=== PATIENT | female | born 1930 | race Caucasian/White ===

== ENCOUNTER 2019-09-21 15:05 | Inpatient (IN) ==
[2019-09-21] MEDS ORDERED: ONDANSETRON 4 MG/2 ML VIAL IV ONE (15:27)
[2019-09-21] MEDS ORDERED: HYDROmorphone 0.5 MG/0.5 ML SYRINGE IV PRN ×2 (15:27→17:47)
[2019-09-21] MEDS ORDERED: LACTATED RINGERS 1,000 ML IV ONE (15:27)
--- NOTE | 2019-09-21 15:39 | Emergency Department Note ---
HPI General Chief complaint: Nausea/Vomiting/Diarrhea Stated complaint: n/v/d Time Seen by Provider: 09/21/19 15:26 Source: patient Mode of arrival: ambulatory Limitations: no limitations History of Present Illness HPI Narrative: Narrative: This patient has been having abdominal pain intermittently since June. 5 days ago she had a gallbladder ultrasound and MRCP which was very consistent with cholecystitis. That was done as an outpatient. She sees Jf Arnold. Jf Arnold saw her today in the office and the patient was supposed to see a surgeon this week but just cannot go through another night with this pain and so she came to the emergency room. Pain is felt in the right upper quadrant and may be perhaps in the right lower quadrant. Does not feel it in the back. Has no current nausea. Onset (ago): week(s) Location: abdomen Radiation: non-radiation Severity: moderate Quality: stabbing and sharp Improves with: none Worsens with: none Associated symptoms: Reports denies other symptoms Treatments Prior to Arrival: none Related Data Home Medications Medication Instructions Recorded Confirmed potassium chloride 10 mEq 10 meq PO QDAY 07/24/19 09/21/19 tablet,extended release Previous Rx's Medication Instructions Recorded apixaban 2.5 mg tablet 2.5 mg PO BID #60 tab 07/31/19 baclofen 5 mg tablet 5 mg PO BID #60 tab 08/10/19 candesartan 4 mg tablet 4 mg PO QDAY #90 tab 08/10/19 metoprolol succinate 50 mg 50 mg PO BID #60 tab 08/10/19 tablet,extended release 24 hr alprazolam 0.25 mg tablet 0.25 mg PO BID PRN #60 tab 09/10/19 Allergies Allergy/AdvReac Type Severity Reaction Status Date / Time lisinopril AdvReac Mild cough Verified 09/21/19 15:08 azithromycin [From Zithromax] AdvReac Unknown Unknown Verified 09/21/19 15:08 Review of Systems ROS ROS Narrative: Narrative: All systems ED: reviewed and negative except as stated. PFSH Narrative Patient History Narrative: Narrative: Medical/Surgical/Family History All Active Problems (Updated 09/21/19 @ 17:51 by Paul Sheikh MD) Nausea (Acute) Diarrhea (Acute) Cholecystitis (Acute) Skin cancer (Chronic) Scarlet fever (Chronic) Osteoarthritis (Chronic) History of bilateral oophorectomy (Chronic) Other hypertrophic cardiomyopathy (Chronic) Nonrheumatic aortic valve regurgitation (Chronic) Blood glucose abnormal (Chronic) Renal failure (Chronic) Pneumonia (Chronic) Anemia (Chronic) Medicare annual wellness visit, subsequent (Chronic) Mitral regurgitation (Chronic) Aortic regurgitation (Chronic) Pleural effusion (Chronic) Anxiety (Chronic) Hyperlipidemia (Chronic) Hx of appendectomy (Chronic) Congestive heart failure (Chronic) Heart failure, systolic, with acute decompensation (Chronic) Hypertension (Chronic) Abnormal liver enzymes (Chronic) Medical History (Updated 09/21/19 @ 17:51 by Paul Sheikh MD) Abnormal liver enzymes (Chronic) resolved. likely related to chf and passive liver congestion. Anemia (Chronic) Anxiety (Chronic) Aortic regurgitation (Chronic) 01/04/2015-Sveta Atrial fibrillation (Acute) Blood glucose abnormal (Chronic) Congestive heart failure (Chronic) Heart failure, systolic, with acute decompensation (Chronic) Etiology? valvular, htn, ischemic? await cardiology note on david and arb. clinically asymptomatic at present. Hyperlipidemia (Chronic) Hypertension (Chronic) Mitral regurgitation (Chronic) 01/04/2015-Sveta Nonrheumatic aortic valve regurgitation (Chronic) Osteoarthritis (Chronic) Other hypertrophic cardiomyopathy (Chronic) Pleural effusion (Chronic) 01/04/2015-Sveta Pneumonia (Chronic) Renal failure (Chronic) Scarlet fever (Chronic) Skin cancer (Chronic) Surgical History History of bilateral oophorectomy (Chronic) Hx of appendectomy (Chronic) Family History Mother Hypertension Brother Hypertension Daughter COPD (chronic obstructive pulmonary disease) Other Parkinson disease Social History Smoking Status: Never smoker Alcohol Intake Frequency: does not drink Substance Use: does not use Exam Narrative Narrative: Narrative: General Limitations: no limitations Head Head: atraumatic, normocephalic and normal inspection Eye Eye: Present normal appearance and EOMI; Absent scleral icterus and conjunctival injection ENT ENT: Present normal exam and mucous membranes moist Chest Chest: Present normal inspection and symmetric chest wall rise Respiratory Respiratory: Present normal lung sounds bilaterally; Absent respiratory distress, rales/crackles and wheezes Cardiovascular Cardiovascular: Present regular rate, normal rhythm and normal heart sounds Adbominal Abdominal: Present soft and tenderness; Absent distention, guarding, rebound and rigidity Expanded Abdominal Abdominal Tenderness: Present RUQ, RLQ and mild Neurological Neurological: Present alert Psychiatric Psychiatric: Present normal affect Skin Skin: Present warm and dry; Absent diaphoretic Course Vital Signs Vital signs: Vital Signs Temperature 96.6 F L 09/21/19 15:06 Pulse Rate 113 H 09/21/19 15:06 Respiratory Rate 16 09/21/19 15:06 Blood Pressure 135/93 09/21/19 15:06 Pulse Oximetry (%) 98 09/21/19 15:06 Temperature 96.6 F L 09/21/19 15:06 Pulse Rate 125 H 09/21/19 17:31 Respiratory Rate 20 09/21/19 17:06 Blood Pressure 124/74 09/21/19 17:31 Pulse Oximetry (%) 98 09/21/19 17:31 MDM MDM Narrative Medical decision making narrative: Narrative: This patient's ultrasound and MRCP are quite consistent with acute cholecystitis without gallbladder stones or common bile duct stones. Lab work today is not too remarkable. I discussed the case with Dr. Arnold and we will go ahead and admit her to the hospital. We will asked the hospitalist to consult. Medical Records Medical records reviewed: Yes I reviewed the patient's medical records. Lab Data Lab results reviewed: Yes I reviewed the patient's lab results. Result diagrams: 09/21/19 15:49 09/21/19 15:48 Labs: Lab Results 09/21/19 09/21/19 Range/Units 15:48 15:49 WBC 8.3 (4.50-11.00) K/mcL RBC 4.25 (3.59-5.38) M/mcL Hgb 13.5 (11.2-15.7) g/dL Hct 40.3 (34.1-44.9) % MCV 94.8 (80.0-100.0) fL MCH 31.8 (26.0-34.0) pg MCHC 33.5 (31.0-36.0) g/dL RDW 14.8 H (11.5-14.5) % Plt Count 199 (140-440) K/mcL MPV 9.6 (7.4-10.4) fL Gran % 63.3 (38.0-78.0) % Lymph % (Auto) 29.4 (15.5-49.0) % [place] % (Auto) 6.6 (1.0-12.0) % Eos % (Auto) 0.2 (0.0-7.0) % Baso % (Auto) 0.5 (0.0-2.0) % Gran # 5.28 (1.80-8.00) K/mcL Lymph # (Auto) 2.45 (1.50-4.80) K/mcL [place] # (Auto) 0.55 (0.10-0.90) K/mcL Eos # (Auto) 0.02 (0.00-0.70) K/mcL Baso # (Auto) 0.04 (0.00-0.30) K/mcL Sodium 131 L (133-145) mmol/L Potassium 4.8 (3.3-5.1) mmol/L Chloride 97 (96-108) mmol/L Carbon Dioxide 18 L (22-30) mmol/L Anion Gap 16.0 (8-16) BUN 29 H (8-23) mg/dl Creatinine 1.4 H (0.6-1.1) mg/dl GFR Calculation 34 Glucose 126 H (70-105) mg/dL Calcium 9.2 (8.6-10.4) mg/dl Total Bilirubin 1.5 H (0.0-1.0) mg/dL AST 73 H (0-37) U/l ALT 65 H (0-40) U/l Alkaline Phosphatase 77 (39-117) U/L Total Protein 6.5 (5.9-8.4) gm/dL Albumin 4.1 (3.2-5.2) gm/dL Globulin 2.4 (2.2-3.7) gm/dL Albumin/Globulin Ratio 1.7 (1.0-2.3) Lipase 26 (7-60) U/L Radiology Data Radiology results reviewed: Yes I reviewed the patient's radiology results. Discharge Plan Patient/Caregiver Discharge Instructions Pt seen by WAREHOU[employer]KL[employer] OPERATOR/PA only: No Clinical Impression: Cholecystitis Patient Disposition: Xfer As Inpt ([facility]) Follow up with: Natasha Arnold ARNP [Primary Care Provider] - Prescriptions: No Action potassium chloride 10 mEq tablet extended release 10 meq PO QDAY RF: 0 Eliquis 2.5 mg tablet 2.5 mg PO BID Qty: 60 RF: 6 metoprolol succinate 50 mg tablet extended release 24 hr 50 mg PO BID Qty: 60 RF: 2 baclofen 5 mg tablet 5 mg PO BID Qty: 60 RF: 2 candesartan [Atacand] 4 mg tablet 4 mg PO QDAY Qty: 90 RF: 0 alprazolam [Xanax] 0.25 mg tablet 0.25 mg PO BID PRN (Reason: anxiety) Qty: 60 RF: 2
[2019-09-21 16:51] LABS: Basophils # (Auto) 0.04 K/mcL (0.00-0.30); Basophils % (Auto) 0.5 % (0.0-2.0); Eosinophils # (Auto) 0.02 K/mcL (0.00-0.70); Eosinophils % (Auto) 0.2 % (0.0-7.0); Granulocytes % (Auto) 63.3 % (38.0-78.0); Hematocrit 40.3 % (34.1-44.9); Hemoglobin 13.5 g/dL (11.2-15.7); Lymphocytes # (Auto) 2.45 K/mcL (1.50-4.80); Lymphocytes % (Auto) 29.4 % (15.5-49.0); Mean Cell Volume 94.8 fL (80.0-100.0); Mean Corpuscular HGB Conc 33.5 g/dL (31.0-36.0); Mean Platelet Volume 9.6 fL (7.4-10.4); Monocytes # (Auto) 0.55 K/mcL (0.10-0.90); Monocytes % (Auto) 6.6 % (1.0-12.0); Platelet Count 199 K/mcL (140-440); RBC 4.25 M/mcL (3.59-5.38); Red Cell Distribution Width 14.8 % (11.5-14.5); WBC 8.3 K/mcL (4.50-11.00)
[2019-09-21 17:10] LABS: ALT/SGPT 65 U/l (0-40); AST/SGOT 73 U/l (0-37); Albumin 4.1 gm/dL (3.2-5.2); Albumin/Globulin Ratio 1.7 (1.0-2.3); Alkaline Phosphatase 77 U/L (39-117); Bilirubin,Total 1.5 mg/dL (0.0-1.0); Blood Urea Nitrogen 29 mg/dl (8-23); Calcium 9.2 mg/dl (8.6-10.4); Carbon Dioxide 18 mmol/L (22-30); Chloride 97 mmol/L (96-108); Globulin 2.4 gm/dL (2.2-3.7); Glomerular Filtration Rate 34; Glucose 126 mg/dL (70-105)
[2019-09-21] MEDS ORDERED: PIPERACILLIN SODIUM/TAZOBACTAM 3.375 GM in DEXTROSE 5% IN WATER 50 ML IV ONE (17:47)
[2019-09-21] MEDS ORDERED: ONDANSETRON 4 MG/2 ML VIAL IV PRN (17:47)
[2019-09-21] MEDS ORDERED: LACTATED RINGERS 1,000 ML IV SCH (18:00)
[2019-09-21 18:14] LABS: Appearance,Urine CLEAR; Bacteria,Urine 0 /hpf (0); Bilirubin,Urine NEG (NEG); Color,Urine YELLOW; Culture Indicated,Urine NO; Glucose,Urine (UA) NEGATIVE (NEG); Ketones,Urine NEG (NEG); Leukocyte Esterase,Urine NEG /uL (NEG); Mucus,Urine FEW /hpf (0); Nitrate,Urine NEG (NEG); Protein,Urine 30 mg/dL (NEG); Specific Gravity,Urine 1.014 (1.000-1.035); Urine Blood NEG mg/dL (<0.03); Urine Hyaline Cast 7 /lpf (0-2); Urine RBC 1 /hpf (0-1); Urine Squamous Epithelial Cell 0 /hpf (0-4); Urine Transitional Epi Cells < 1 /hpf (0-2); Urine WBC 1 /hpf (0-4); Urobilinogen,Urine NEG (NEG)
--- NOTE | 2019-09-21 18:42 | XRay Report ---
CLINICAL INFORMATION: edema COMPARISON: 12/19/2014 FINDINGS: The heart is moderately enlarged. Mediastinum is normal. Upper lobe pulmonary vessels are mildly distended and there is minimal interstitial edema. Small bilateral pleural effusions noted. IMPRESSION: Mild CHF Interpreted and Authenticated by: Benoit Baugh 09/21/19
--- NOTE | 2019-09-21 20:09 | General Surg History&Physical ---
HPI History of Present Illness Patient information: Note initiated : 09/21/19 at 8:01 pm Service Date, if different from initiated Date: [] Patient: Liane James a 89 y/o F admitted on 09/21/19 for n/v/d. Chief Complaint: [] History of present illness: Ms. James is a 89 year old F admitted with acute acalculous cholecystitis. The patient has a two-month history of right subcostal abdominal pain with radiation to back and right shoulder. She has some exacerbation of symptoms with meals. Evaluation shows gallbladder ultrasound revealing thickened gallbladder without stones. MRCP on 09/16/19 shows a thickened gallbladder wall without stones and with normal bowel ducts. Patient is counseled for acalculous cholecystitis and laparoscopic cholecystectomy. This will be performed tomorrow. The patient has a history of hypertensive cardiomyopathy dating back to 2014. At that time she had an ejection fraction of 20%. Her last echocardiogram on 07/14/19 shows ejection fraction of 25%. She had a stress test on 07/15/19 which shows no reversible ischemia. She has had periods of congestive heart failure treated with diuretic therapy in the past. She was offered an AICD but refused. She states that she is active around her house and she does her housework. She denies having chest pain other than pain when she bends at the waist on the right side. Constitutional Constitutional: Present anorexia, fatigue, malaise and weakness EENT Eyes: Present requires corrective lenses; Absent blurry vision and change in vision Ears: Present decreased hearing; Absent tinnitus Nose, mouth and throat: Present abnormal hearing; Absent neck pain Cardiovascular Cardiovascular: Present dyspnea on exertion, leg edema, palpatations, pedal edema and rapid heart rate; Absent chest pain with activity Respiratory Respiratory: Present dyspnea on exertion and wheezing Gastrointestinal Gastrointestinal: Present abdominal pain, early satiety and nausea; Absent vomiting Genitourinary Genitourinary: Present urinary incontinence; Absent urinary frequency and urinary urgency Musculoskeletal Musculoskeletal: Present arthralgias, muscle cramps and myalgias Integumentary Integumentary: Absent pruritus and rash Neurological Neurological: Present abnormal hearing and memory loss; Absent confusion, headache(s), paresthesias, syncope and vertigo Psychiatric Psychiatric: Present confusion and memory loss; Absent depression Endocrine Endocrine: Present fatigue; Absent palpitations Hematologic/Lymphatic Hematologic/Lymphatic: Present easy bleeding (patient is on anticoagulant therapy) and easy bruising; Absent lymphadenopathy Allergic/Immunologic Allergic/Immunologic: Absent tongue swelling, throat swelling, uticaria, wheezing and lip swelling [facility] Medical History (Updated 09/21/19 @ 20:23 by Ki Arnold MD) Abnormal liver enzymes (Chronic) resolved. likely related to chf and passive liver congestion. Anemia (Chronic) Anxiety (Chronic) Aortic regurgitation (Chronic) 01/04/2015-Sveta Atrial fibrillation (Acute) Blood glucose abnormal (Chronic) Congestive heart failure (Chronic) Heart failure, systolic, with acute decompensation (Chronic) Etiology? valvular, htn, ischemic? await cardiology note on david and arb. clinically asymptomatic at present. Hyperlipidemia (Chronic) Hypertension (Chronic) Mitral regurgitation (Chronic) 01/04/2015-Sveta Nonrheumatic aortic valve regurgitation (Chronic) Osteoarthritis (Chronic) Other hypertrophic cardiomyopathy (Chronic) Pleural effusion (Chronic) 01/04/2015-Sveta Pneumonia (Chronic) Renal failure (Chronic) Scarlet fever (Chronic) Skin cancer (Chronic) Surgical History History of bilateral oophorectomy (Chronic) Hx of appendectomy (Chronic) Family History Mother Hypertension Brother Hypertension Daughter COPD (chronic obstructive pulmonary disease) Other Parkinson disease Social History lives independently: Yes marital status: occupational status: retired other: 5 children, 11 grandchildren daily servings fruits/ve-4 physical activity: walking smoking status: Never smoker alcohol intake frequency: does not drink substance use type: does not use seatbelt use: always MEDS/ALLERGIES Home Medications and Allergies Home Medications Medication Instructions Recorded Confirmed Type potassium chloride 10 mEq 10 meq PO QDAY 07/24/19 09/21/19 History tablet,extended release apixaban 2.5 mg tablet 2.5 mg PO BID #60 tab 07/31/19 09/21/19 Rx baclofen 5 mg tablet 5 mg PO BID #60 tab 08/10/19 09/21/19 Rx candesartan 4 mg tablet 4 mg PO QDAY #90 tab 08/10/19 09/21/19 Rx metoprolol succinate 50 mg 50 mg PO BID #60 tab 08/10/19 09/21/19 Rx tablet,extended release 24 hr alprazolam 0.25 mg tablet 0.25 mg PO BID PRN #60 tab 09/10/19 09/21/19 Rx Allergies Allergy/AdvReac Type Severity Reaction Status Date / Time lisinopril AdvReac Mild cough Verified 09/21/19 15:08 azithromycin [From Zithromax] AdvReac Unknown Unknown Verified 09/21/19 15:08 Physical Examination Vital Signs Vital signs: Temp Pulse Resp BP Pulse Ox 96.6 F L 103 H 18 132/85 96 09/21/19 15:06 09/21/19 19:06 09/21/19 19:06 09/21/19 19:06 09/21/19 19:06 General physical appearance General physical exam: well developed, well nourished, no distress and moderate pain Eyes Eye exam: PERRL, normal ocular movement and pale; negative icteric ENT ENT exam: normal pinna, normal nares, normal mucosa and decreased hearing Head Head exam IM: Present atraumatic, normal inspection and normocephalic Neck Neck exam: no masses, no bruits, trachea midline, no lymphadenopathy and no venous distension Cardiovascular Cardiovascular exam IM: Present irregular rhythm (irregularly irregular rhythm), +S1, +S2 and tachycardia; Absent JVD Respiratory Respiratory exam: normal expansion, normal respiratory effort, clear to percussion and clear to auscultation (no rales rubs rhonchi or wheezes) Abdomen Abdomen: Present tender (tenderness in epigastrium and right upper quadrant in the subcostal region) Integumentary Integumentary: Present no rash, no growths and no abnormal pigmentation Neurologic Neurologic: Present normal coordination and normal sensation Musculoskeletal Musculoskeletal: Present normal gait and normal posture Psychiatric Psychiatric: Present oriented to time, oriented to person, oriented to place and speech is normal Results Labs Result diagrams: 09/21/19 15:49 09/21/19 15:48 Labs: Abnormal lab results 09/21/19 09/21/19 09/21/19 Range/Units 15:48 15:49 17:20 RDW 14.8 H (11.5-14.5) % Sodium 131 L (133-145) mmol/L Carbon Dioxide 18 L (22-30) mmol/L BUN 29 H (8-23) mg/dl Creatinine 1.4 H (0.6-1.1) mg/dl Glucose 126 H (70-105) mg/dL Total Bilirubin 1.5 H (0.0-1.0) mg/dL AST 73 H (0-37) U/l ALT 65 H (0-40) U/l Urine Protein 30 A (NEG) mg/dL Hyaline Casts 7 H (0-2) /lpf Diabetes panel 09/21/19 Range/Units 15:48 Sodium 131 L (133-145) mmol/L Potassium 4.8 (3.3-5.1) mmol/L Chloride 97 (96-108) mmol/L Carbon Dioxide 18 L (22-30) mmol/L BUN 29 H (8-23) mg/dl Creatinine 1.4 H (0.6-1.1) mg/dl Glucose 126 H (70-105) mg/dL Calcium 9.2 (8.6-10.4) mg/dl AST 73 H (0-37) U/l ALT 65 H (0-40) U/l Alkaline Phosphatase 77 (39-117) U/L Total Protein 6.5 (5.9-8.4) gm/dL Albumin 4.1 (3.2-5.2) gm/dL Calcium panel 09/21/19 Range/Units 15:48 Calcium 9.2 (8.6-10.4) mg/dl Albumin 4.1 (3.2-5.2) gm/dL Pituitary panel 09/21/19 Range/Units 15:48 Sodium 131 L (133-145) mmol/L Potassium 4.8 (3.3-5.1) mmol/L Chloride 97 (96-108) mmol/L Carbon Dioxide 18 L (22-30) mmol/L BUN 29 H (8-23) mg/dl Creatinine 1.4 H (0.6-1.1) mg/dl Glucose 126 H (70-105) mg/dL Calcium 9.2 (8.6-10.4) mg/dl Adrenal panel 09/21/19 Range/Units 15:48 Sodium 131 L (133-145) mmol/L Potassium 4.8 (3.3-5.1) mmol/L Chloride 97 (96-108) mmol/L Carbon Dioxide 18 L (22-30) mmol/L BUN 29 H (8-23) mg/dl Creatinine 1.4 H (0.6-1.1) mg/dl Glucose 126 H (70-105) mg/dL Calcium 9.2 (8.6-10.4) mg/dl Total Bilirubin 1.5 H (0.0-1.0) mg/dL AST 73 H (0-37) U/l ALT 65 H (0-40) U/l Alkaline Phosphatase 77 (39-117) U/L Total Protein 6.5 (5.9-8.4) gm/dL Albumin 4.1 (3.2-5.2) gm/dL All other labs normal. 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 This has been stable since 2015. Stress test performed 07/15/19 shows no evidence of reversible ischemia Status: Acute (4) Chronic atrial fibrillation: Assessment and plan: patient is on low-dose apixaban and should do well for laparoscopic procedure Status: Acute Narrative A/P Narrative: patient will be covered with antibiotics and will be scheduled for cholecystectomy tomorrow. Time Spent With Patient Time: Total time spent is greater than 50% in coordination of care (as documented) at patient's floor/unit and/or counseling patient:
[2019-09-21] MEDS ORDERED: 0.9 % SODIUM CHLORIDE 1,000 ML IV SCH ×2 (20:30→22:15)
[2019-09-21] MEDS: ACETAMINOPHEN 1,000 MG/100 ML BOTTLE IV SCH ×2 (20:41→22:00)
[2019-09-21] MEDS ORDERED: PIPERACILLIN SODIUM/TAZOBACTAM 2.25 GM in DEXTROSE 5% IN WATER 50 ML IV SCH (21:00)
--- NOTE | 2019-09-21 21:51 | Internal Medicine Consult Note ---
HPI Data of Consult Consult date: 09/21/19 Requesting physician: Ki Arnold Primary Care Provider: Natasha Arnold Consult Narrative Chief complaint: abd pain Reason for consult: preop consult History of present illness: Patient is a 89-year-old female with a history of systolic CHF, hypertensive hypertrophic cardiomyopathy, mitral regurgitation, aortic regurgitation, chronic atrial fibrillation, hypertension, and CKD who was admitted to the hospital from laparoscopic cholecystectomy tomorrow. Medical consult was requested by surgeon Dr. Arnold for preop consultation. Patient states that she has been having intermittent right upper abdominal pain for more than 2 months. The pain is sharp in nature and radiates to right shoulder and the back. When I saw this patient in her room, she was fine. Denied headache, dizziness, chest pain, shortness of breath, palpitation, abdominal pain, fever, chills, nausea, vomiting, diarrhea or dysuria. 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 Denied smoking or drink alcohol. Denies medical problems with lungs. cc:: CC: Ki Arnold MD Review of Systems All systems: reviewed and no additional remarkable complaints except as stated PFSH PFSH Medical History Abnormal liver enzymes (Chronic) resolved. likely related to chf and passive liver congestion. Anemia (Chronic) Anxiety (Chronic) Aortic regurgitation (Chronic) 01/04/2015-[facility] Atrial fibrillation (Acute) Blood glucose abnormal (Chronic) Congestive heart failure (Chronic) Heart failure, systolic, with acute decompensation (Chronic) Etiology? valvular, htn, ischemic? await cardiology note on nick and arb. clinically asymptomatic at present. Hyperlipidemia (Chronic) Hypertension (Chronic) Mitral regurgitation (Chronic) 01/04/2015-[facility]eta Nonrheumatic aortic valve regurgitation (Chronic) Osteoarthritis (Chronic) Other hypertrophic cardiomyopathy (Chronic) Pleural effusion (Chronic) 01/04/2015-Sveta Pneumonia (Chronic) Renal failure (Chronic) Scarlet fever (Chronic) Skin cancer (Chronic) Surgical History History of bilateral oophorectomy (Chronic) Hx of appendectomy (Chronic) Family History Mother Hypertension Brother Hypertension Daughter COPD (chronic obstructive pulmonary disease) Other Parkinson disease Social History lives independently: Yes marital status: occupational status: retired other: 5 children, 11 grandchildren daily servings fruits/ve-4 physical activity: walking smoking status: Never smoker alcohol intake frequency: does not drink substance use type: does not use seatbelt use: always MEDS/ALLERGIES Home Medications and Allergies Home Medications Medication Instructions Recorded Confirmed Type potassium chloride 10 mEq 10 meq PO QDAY 07/24/19 09/21/19 History tablet,extended release apixaban 2.5 mg tablet 2.5 mg PO BID #60 tab 07/31/19 09/21/19 Rx baclofen 5 mg tablet 5 mg PO BID #60 tab 08/10/19 09/21/19 Rx candesartan 4 mg tablet 4 mg PO QDAY #90 tab 08/10/19 09/21/19 Rx metoprolol succinate 50 mg 50 mg PO BID #60 tab 08/10/19 09/21/19 Rx tablet,extended release 24 hr alprazolam 0.25 mg tablet 0.25 mg PO BID PRN #60 tab 09/10/19 09/21/19 Rx Allergies Allergy/AdvReac Type Severity Reaction Status Date / Time lisinopril AdvReac Mild cough Verified 09/21/19 15:08 azithromycin [From Zithromax] AdvReac Unknown Unknown Verified 09/21/19 15:08 EXAM Constitutional Vitals: Temp Pulse Resp BP Pulse Ox 96.6 F L 103 H 18 132/85 96 09/21/19 15:06 09/21/19 19:06 09/21/19 19:06 09/21/19 19:06 09/21/19 19:06 Additional findings Additional findings: General - No acute distress Eyes - PERRLA, EOM intact ENT no rhinorrhea, no noticeable or palpable swelling, no redness or rash around throat or on face Neck supple, no JVD, no thyromegaly Respiratory: Lungs -clear, no wheezing or crackles. Cardiovascular - RRR no m/r/g, GI - Normal bowel sounds, no distended, soft. Extremeties - Pitting + in both legs. No cyanosis or clubbing Hemo/lymphatic/immune no lymphadenopathy Neurological Alert and oriented x 3, no focal neurological deficits. Psychiatry flat affect DATA Data Completed and Pending Labs on day of discharge: Labs from last 24 hours 09/21/19 09/21/19 09/21/19 17:20 15:49 15:48 WBC 8.3 RBC 4.25 Hgb 13.5 Hct 40.3 MCV 94.8 MCH 31.8 MCHC 33.5 RDW 14.8 H Plt Count 199 MPV 9.6 Gran % 63.3 Lymph % (Auto) 29.4 [place] % (Auto) 6.6 Eos % (Auto) 0.2 Baso % (Auto) 0.5 Gran # 5.28 Lymph # (Auto) 2.45 [place] # (Auto) 0.55 Eos # (Auto) 0.02 Baso # (Auto) 0.04 Sodium Potassium Chloride Carbon Dioxide Anion Gap BUN Creatinine GFR Calculation Glucose Calcium Total Bilirubin AST ALT Alkaline Phosphatase NT-Pro-B Natriuret Pep 03050.0 H Total Protein Albumin Globulin Albumin/Globulin Ratio Lipase Urine Color Yellow Urine Appearance Clear Urine pH 5.0 Ur Specific [place] 1.014 Urine Protein 30 A Urine Glucose (UA) Negative Urine Ketones Neg Urine Occult Blood Neg Urine Nitrate Neg Urine Bilirubin Neg Urine Urobilinogen Neg Ur Leukocyte Esterase Neg Urine RBC 1 Urine WBC 1 Ur Squamous Epith Cells 0 Ur Transition Epith Cell < 1 Urine Bacteria 0 Hyaline Casts 7 H Urine Mucus Few Ur Culture Indicated? No 09/21/19 15:48 WBC RBC Hgb Hct MCV MCH MCHC RDW Plt Count MPV Gran % Lymph % (Auto) [place] % (Auto) Eos % (Auto) Baso % (Auto) Gran # Lymph # (Auto) [place] # (Auto) Eos # (Auto) Baso # (Auto) Sodium 131 L Potassium 4.8 Chloride 97 Carbon Dioxide 18 L Anion Gap 16.0 BUN 29 H Creatinine 1.4 H GFR Calculation 34 Glucose 126 H Calcium 9.2 Total Bilirubin 1.5 H AST 73 H ALT 65 H Alkaline Phosphatase 77 NT-Pro-B Natriuret Pep Total Protein 6.5 Albumin 4.1 Globulin 2.4 Albumin/Globulin Ratio 1.7 Lipase 26 Urine Color Urine Appearance Urine pH Ur Specific [place] Urine Protein Urine Glucose (UA) Urine Ketones Urine Occult Blood Urine Nitrate Urine Bilirubin Urine Urobilinogen Ur Leukocyte Esterase Urine RBC Urine WBC Ur Squamous Epith Cells Ur Transition Epith Cell Urine Bacteria Hyaline Casts Urine Mucus Ur Culture Indicated? A/P Narrative A/P Narrative: 1. Acute acalculous cholecystitis right shoulder and back Has been scheduled for laparoscopic cholecystectomy by Dr. Arnold tomorrow RCRI predicts 6.0 - 10% 30-day risk of , [place], or cardiac arrest. Postop mangement including pain control and DVT prophylaxis by surgical team N.p.o. after midnight I would like her to continue her metoprolol. Closely monitor fluid balance IV fluid 30ml/hr 2. Systolic CHF, BNP 49358 3. Hypertensive hypertrophic cardiomyopathy echo on 07/14/19 - EF 25%. A stress test was done on 07/15/19 - no reversible ischemia. BNP high, but her fluid status almost fine Intake and output Daily weight Continue metoprolol I held her ACEI due to SHERRI 4. Mitral regurgitation 5. Aortic regurgitation watch fluid status and reduce blood loss 6. Chronic atrial fibrillation: Heart rate controlled Continue metoprolol Eliquis is on hold 7. HTN Blood pressure controlled Continue metoprolol NICK inhibitor is on hold 8. SHERRI on CKD Avoid nephrotoxic meds and the contrast Repeat renal function in morning 9. Elevation of liver enzymes Repeat liver function in morning 10: DVT prophylaxis: By surgical team 11: CODE STATUS: DNR DNI Time Spent With Patient Time: Total time spent is greater than 50% in coordination of care (as doc umented) at patient's floor/unit and/or counseling patient:
--- NOTE | 2019-09-21 22:05 | Event Note ---
Event Note Event Note: Advanced Care Planning Documents: Parties in Attendance: pt, RN and the typewriter mechanic. Decisional Capacity: yes (pt is alert and answers questions appropriately) RN and I explained CPR and intubation in detail to her. She declined CPR and intubation. She would like to "let her go".
[2019-09-22] MEDS: PIPERACILLIN SODIUM/TAZOBACTAM 2.25 GM in DEXTROSE 5% IN WATER 50 ML IV SCH ×5 (01:40→23:59)
[2019-09-22] MEDS: ACETAMINOPHEN 1,000 MG/100 ML BOTTLE IV SCH ×4 (02:47→20:30)
[2019-09-22] MEDS ORDERED: IBUPROFEN 200 MG TABLET PO PRN (06:55)
[2019-09-22 07:06] LABS: Basophils # (Auto) 0.03 K/mcL (0.00-0.30); Basophils % (Auto) 0.5 % (0.0-2.0); Eosinophils # (Auto) 0.05 K/mcL (0.00-0.70); Eosinophils % (Auto) 0.8 % (0.0-7.0); Granulocytes % (Auto) 63.6 % (38.0-78.0); Hematocrit 36.8 % (34.1-44.9); Hemoglobin 12.1 g/dL (11.2-15.7); Lymphocytes # (Auto) 1.66 K/mcL (1.50-4.80); Lymphocytes % (Auto) 27.2 % (15.5-49.0); Mean Cell Volume 95.6 fL (80.0-100.0); Mean Corpuscular HGB Conc 32.9 g/dL (31.0-36.0); Mean Platelet Volume 9.8 fL (7.4-10.4); Monocytes # (Auto) 0.48 K/mcL (0.10-0.90); Monocytes % (Auto) 7.9 % (1.0-12.0); Platelet Count 163 K/mcL (140-440); RBC 3.85 M/mcL (3.59-5.38); Red Cell Distribution Width 15.1 % (11.5-14.5); WBC 6.1 K/mcL (4.50-11.00)
[2019-09-22] MEDS ORDERED: PANTOPRAZOLE 40 MG PACKET PO SCH (07:30)
[2019-09-22 07:41] LABS: ALT/SGPT 57 U/l (0-40); AST/SGOT 59 U/l (0-37); Albumin 3.3 gm/dL (3.2-5.2); Albumin/Globulin Ratio 1.6 (1.0-2.3); Alkaline Phosphatase 65 U/L (39-117); Bilirubin,Direct 0.4 mg/dL (0.0-0.3); Bilirubin,Total 1.2 mg/dL (0.0-1.0); Calcium 8.4 mg/dl (8.6-10.4); Carbon Dioxide 19 mmol/L (22-30); Chloride 97 mmol/L (96-108); Globulin 2.1 gm/dL (2.2-3.7); Glomerular Filtration Rate 34; Glucose 107 mg/dL (70-105); Lactate Dehydrogenase 235 U/L (94-250); Phosphorous 4.4 mg/dL (2.7-4.5); Triglycerides 80 mg/dl (<150); Uric Acid 7.4 mg/dL (2.5-8.0)
[2019-09-22 07:42] LABS: Blood Urea Nitrogen 27 mg/dl (8-23)
[2019-09-22] MEDS ORDERED: METOPROLOL SUCCINATE 50 MG TAB.XL.24H PO SCH (09:00)
[2019-09-22] MEDS ORDERED: CANDESARTAN 4 MG PO SCH (09:00)
--- NOTE | 2019-09-22 11:53 | Internal Med Progress Note ---
SUBJECTIVE Subjective Patient information: Note initiated : 09/22/19 at 11:49 am Service Date, if different from initiated Date: [] Patient: Liane James 89 y/o F admitted on 09/21/19 for n/v/d. Chief Complaint: [] Interval history: Patient is a 89-year-old female with a history of systolic CHF, hypertensive hypertrophic cardiomyopathy, mitral regurgitation, aortic regurgitation, chronic atrial fibrillation, hypertension, and CKD who was admitted to the hospital from laparoscopic cholecystectomy tomorrow. Medical consult was requested by surgeon Dr. Arnold for preop consultation. Patient states that she has been having intermittent right upper abdominal pain for more than 2 months. The pain is sharp in nature and radiates to right shoulder and the back. When I saw this patient in her room, she was fine. Denied headache, dizziness, chest pain, shortness of breath, palpitation, abdominal pain, fever, chills, nausea, vomiting, diarrhea or dysuria. 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 Denied smoking or drink alcohol. Denies medical problems with lungs. 09/21 Pt is fine. Denied medical complaints. She is ready for the procedure. No overnight events Review of Systems All systems: reviewed and no additional remarkable complaints except as stated Constitutional Vitals: Vital Signs Temp Pulse Resp BP Pulse Ox 98.5 F 76 18 128/72 92 09/22/19 07:00 09/22/19 07:00 09/22/19 07:00 09/22/19 07:00 09/22/19 07:00 Period Temp Pulse Resp BP Sys/Egan Pulse Ox Last 24 Hr 96.6 F-98.5 F 76-125 16-20 124-137/72-93 92-98 Intake and Output 09/21/19 09/22/19 09/22/19 21:59 05:59 13:59 Intake Total 1050 250 150 Output Total 0 Balance 1050 250 150 Weight 73.255 kg Intake & Output: Intake & Output 09/21/19 09/22/19 09/22/19 21:59 05:59 13:59 Intake Total 1050 250 150 Output Total 0 Balance 1050 250 150 Weight 73.255 kg Intake: IV 1050 250 150 Lactated Ringers 1,000 ml @ 1000 Wide Open IV BOLUS ONE Rx#: [id number] Zosyn 2.25 gm In Dextrose 5% in 50 50 Water 50 ml @ 100 mls/hr IV Q6H [facility] Rx#:[id number] Zosyn 3.375 gm In Dextrose 5% 50 in Water 50 ml @ 100 mls/hr IV ONCE ONE Rx#:[id number] Oral 0 Output: Void Amount 0 Other: # Voids 1 # Bowel Movements 0 Additional findings Additional findings: General - No acute distress Eyes - PERRLA, EOM intact ENT no rhinorrhea, no noticeable or palpable swelling, no redness or rash andrew und throat or on face Neck supple, no JVD, no thyromegaly Respiratory: Lungs -clear, no wheezing or crackles. Cardiovascular - RRR no m/r/g, GI - Normal bowel sounds, no distended, soft, mild to moderate tenderness over upper right quadrant. Possible positive Harwood sign. Extremeties - Pitting + in both legs. No cyanosis or clubbing Hemo/lymphatic/immune no lymphadenopathy Neurological Alert and oriented x 3, no focal neurological deficits. Psychiatry flat affect OBJ DATA Labs CBC & Chem 7: 09/22/19 05:28 09/22/19 05:18 Labs: Abnormal Lab Results 09/22/19 09/22/19 09/21/19 05:28 05:18 17:20 RDW 15.1 H Sodium 132 L Carbon Dioxide 19 L BUN 27 H Creatinine 1.4 H Glucose 107 H Calcium 8.4 L Total Bilirubin 1.2 H Direct Bilirubin 0.4 H GGT 46 H AST 59 H ALT 57 H NT-Pro-B Natriuret Pep Total Protein 5.4 L Globulin 2.1 L Urine Protein 30 A Hyaline Casts 7 H 09/21/19 09/21/19 09/21/19 15:49 15:48 15:48 RDW 14.8 H Sodium 131 L Carbon Dioxide 18 L BUN 29 H Creatinine 1.4 H Glucose 126 H Calcium Total Bilirubin 1.5 H Direct Bilirubin GGT AST 73 H ALT 65 H NT-Pro-B Natriuret Pep 24178.0 H Total Protein Globulin Urine Protein Hyaline Casts Meds: Medications Hydromorphone HCl (Dilaudid) 0.5 mg IV Q2HP PRN; Protocol PRN Reason: Per Pain Protocol Acetaminophen (Ofirmev) 1,000 mg in 100 mls @ 200 mls/hr IV Q6H [facility] Stop: 09/22/19 20:27 Last Infusion: 09/22/19 09:46 Dose: Infused Documented by: Piperacillin Sod/Tazobactam (Sod 2.25 gm/ Dextrose) 50 mls @ 100 mls/hr IV Q6H [facility]; Protocol Last Admin: 09/22/19 11:43 Dose: 100 mls/hr Documented by: Sodium Chloride (Sodium Chloride 0.9%) 1,000 mls @ 30 mls/hr IV .Q24H [facility] Last Admin: 09/21/19 22:15 Dose: 30 mls/hr Documented by: Ibuprofen (Motrin) 200 mg PO Q6HP PRN; Protocol PRN Reason: for fever Metoprolol Succinate (Toprol Xl) 50 mg PO BID [facility] Last Admin: 09/22/19 09:05 Dose: Not Given Documented by: Ondansetron HCl (Zofran) 4 mg IV Q4HP PRN PRN Reason: Nausea And Vomiting Pantoprazole Sodium (Protonix) 40 mg PO QAMAC [facility] Last Admin: 09/22/19 07:55 Dose: Not Given Documented by: A/P Narrative A/P Narrative: 1. Acute acalculous cholecystitis right shoulder and back Has been scheduled for laparoscopic cholecystectomy by Dr. Arnold tomorrow RCRI predicts 6.0 - 10% 30-day risk of , [place], or cardiac arrest. Postop mangement including pain control and DVT prophylaxis by surgical team 2. Systolic CHF, BNP 56208 3. Hypertensive hypertrophic cardiomyopathy echo on 07/14/19 - EF 25%. A stress test was done on 07/15/19 - no reversible ischemia. BNP high, but her fluid status almost fine Intake and output Daily weight Continue metoprolol I held her ACEI due to SHERRI 4. Mitral regurgitation 5. Aortic regurgitation watch fluid status and reduce blood loss 6. Chronic atrial fibrillation: Heart rate controlled Continue metoprolol Eliquis is on hold 7. HTN Blood pressure controlled Continue metoprolol NICK inhibitor is on hold 8. SHERRI on CKD Avoid nephrotoxic meds and the contrast creatinine 1.4 today Repeat renal function in morning 9. Elevation of liver enzymes Repeat liver function in morning 10: DVT prophylaxis: By surgical team 11: CODE STATUS: DNR DNI Time Spent With Patient Time: Total time spent is greater than 50% in coordination of care (as documented) at patient's floor/unit and/or counseling patient: QUALITY Stroke Symptom Onset Unknown: No VTE Deep Vein Thrombosis/Pulmonary Embolism Present on Admission: No
[2019-09-22] MEDS ORDERED: KETAMINE 10 MG/ML ML IV ONE (13:51)
[2019-09-22] MEDS ORDERED: VERAPAMIL 2.5 MG/ML VIAL IV ONE (13:51)
[2019-09-22] MEDS ORDERED: METOPROLOL TARTRATE 5 MG/5 ML VIAL IV ONE (13:51)
--- NOTE | 2019-09-22 14:46 | General Surgery Progress Note ---
SUBJECTIVE Subjective Patient information: Note initiated : 09/22/19 at 2:42 pm Service Date, if different from initiated Date: [] Patient: Liane James 89 y/o F admitted on 09/22/19 for n/v/d. Chief Complaint: [] Principal diagnosis: atrial fibrillation with rapid ventricular response Interval history: patient was moved to the operating table in preparation for induction of anesthesia when she developed atrial fibrillation with rapid ventricular response. Her heart rate was up to 180 range. She was saturating at 100% and her respirations were about 20. She did have slight mental change which recovered after about 5 minutes. She was moved back to recovery area and was given metoprolol and verapamil by anesthesia. At the present time she is alert and awake with heart rate about 110-112. She is talking appropriately and has no complaint of shortness of breath or chest discomfort. EKG shows atrial fibrillation with RVR. I have asked the hospitalist to evaluate her and hopefully we can block her heart rate adequately enough that we can proceed with her surgery tomorrow. i DISCUSSED THIS WITH HER SON Neymar and he relates verbally that he understands and supports our plan. Constitutional Vitals: Vital Signs Temp Pulse Resp BP Pulse Ox 99.2 F H 106 H 25 H 120/72 97 09/22/19 14:40 09/22/19 14:40 09/22/19 14:40 09/22/19 14:40 09/22/19 14:40 Period Temp Pulse Resp BP Sys/Egan Pulse Ox Last 24 Hr 96.6 F-99.2 F 76-169 16-28 120-151/72-107 92-100 Intake and Output 09/22/19 09/22/19 09/22/19 05:59 13:59 21:59 Intake Total 250 150 300 Output Total 0 125 Balance 250 25 300 Intake & Output: Intake & Output 09/22/19 09/22/19 09/22/19 05:59 13:59 21:59 Intake Total 250 150 300 Output Total 0 125 Balance 250 25 300 Intake: IV 250 150 Zosyn 2.25 gm In Dextrose 5% in 50 50 Water 50 ml @ 100 mls/hr IV Q6H [facility] Rx#:[id number] Oral 0 IV - Manual Only 300 Output: Void Amount 0 125 Other: Urine Appearance Clear Clear Urine Color Bright Yellow Bright Yellow # Voids 1 # Bowel Movements 0 A/P Assessment and plan (1) Atrial fibrillation with rapid ventricular response: Status: Acute (2) Chronic atrial fibrillation: Status: Acute (3) Acute acalculous cholecystitis: Status: Acute Narrative A/P Narrative: patient will be treated and stabilized overnight and we will make plans for operative removal of her gallbladder tomorrow.. Time Spent With Patient Time: Total time spent is greater than 50% in coordination of care (as documented) at patient's floor/unit and/or counseling patient:
--- NOTE | 2019-09-22 14:50 | Internal Med Progress Note ---
SUBJECTIVE Subjective Patient information: Note initiated : 09/22/19 at 2:49 pm Service Date, if different from initiated Date: [] Patient: Liane James 89 y/o F admitted on 09/22/19 for n/v/d. Chief Complaint: [] Patient is a 89-year-old female with a history of systolic CHF, hypertensive hy pertrophic cardiomyopathy, mitral regurgitation, aortic regurgitation, chronic atrial fibrillation, hypertension, and CKD who was admitted to the hospital from laparoscopic cholecystectomy tomorrow. Medical consult was requested by surgeon Dr. Arnold for preop consultation. Patient states that she has been having intermittent right upper abdominal pain for more than 2 months. The pain is sharp in nature and radiates to right shoulder and the back. When I saw this patient in her room, she was fine. Denied headache, dizziness, chest pain, shortness of breath, palpitation, abdominal pain, fever, chills, nausea, vomiting, diarrhea or dysuria. 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 Denied smoking or drink alcohol. Denies medical problems with lungs. 09/21 Pt is fine. Denied medical complaints. She is ready for the procedure. No overnight events Surgery note 09/21- patient was moved to the operating table in preparation for induction of a nesthesia when she developed atrial fibrillation with rapid ventricular response. Her heart rate was up to 180 range. She was saturating at 100% and her respirations were about 20. She did have slight mental change which recovered after about 5 minutes. She was moved back to recovery area and was given metoprolol and verapamil by anesthesia. At the present time she is alert and awake with heart rate about 110-112. She is talking appropriately and has no complaint of shortness of breath or chest discomfort. EKG shows atrial fibrillation with RVR. I have asked the hospitalist to evaluate her and hopefully we can block her heart rate adequately enough that we can proceed with her surgery tomorrow. i DISCUSSED THIS WITH HER SON Neymar and he relates verbally that he understands and supports our plan. 09/21-hospitalist review for A. fib RVR. Patient seen in room shortly after arrival from PACU. Denies chest pain diaphoresis lightheadedness dizziness or palpitation. Responded well to metoprolol. Blood pressure improved. Continue monitoring/telemetry/as needed rate control measures. Troponins negative. Chest x-ray total resolution of CHF. Principal diagnosis: atrial fibrillation with rapid ventricular response Constitutional Vitals: Vital Signs Temp Pulse Resp BP Pulse Ox 99.2 F H 106 H 25 H 120/72 97 09/22/19 14:40 09/22/19 14:40 09/22/19 14:40 09/22/19 14:40 09/22/19 14:40 Period Temp Pulse Resp BP Sys/Egan Pulse Ox Last 24 Hr 96.6 F-99.2 F 76-169 16-28 120-151/72-107 92-100 Intake and Output 09/22/19 09/22/19 09/22/19 05:59 13:59 21:59 Intake Total 250 150 300 Output Total 0 125 Balance 250 25 300 Intake & Output: Intake & Output 09/22/19 09/22/19 09/22/19 05:59 13:59 21:59 Intake Total 250 150 300 Output Total 0 125 Balance 250 25 300 Intake: IV 250 150 Zosyn 2.25 gm In Dextrose 5% in 50 50 Water 50 ml @ 100 mls/hr IV Q6H [facility] Rx#:[id number] Oral 0 IV - Manual Only 300 Output: Void Amount 0 125 Other: Urine Appearance Clear Clear Urine Color Bright Yellow Bright Yellow # Voids 1 # Bowel Movements 0 OBJ DATA Labs CBC & Chem 7: 09/23/19 04:36 09/23/19 04:36 Labs: Abnormal Lab Results 09/22/19 09/22/19 09/21/19 05:28 05:18 17:20 RDW 15.1 H Sodium 132 L Carbon Dioxide 19 L BUN 27 H Creatinine 1.4 H Glucose 107 H Calcium 8.4 L Total Bilirubin 1.2 H Direct Bilirubin 0.4 H GGT 46 H AST 59 H ALT 57 H NT-Pro-B Natriuret Pep Total Protein 5.4 L Globulin 2.1 L Urine Protein 30 A Hyaline Casts 7 H 09/21/19 09/21/19 09/21/19 15:49 15:48 15:48 RDW 14.8 H Sodium 131 L Carbon Dioxide 18 L BUN 29 H Creatinine 1.4 H Glucose 126 H Calcium Total Bilirubin 1.5 H Direct Bilirubin GGT AST 73 H ALT 65 H NT-Pro-B Natriuret Pep 20563.0 H Total Protein Globulin Urine Protein Hyaline Casts Meds: Medications Famotidine (Pepcid) 20 mg IV Q12 [facility] Hydromorphone HCl (Dilaudid) 0.5 mg IV Q2HP PRN; Protocol PRN Reason: Per Pain Protocol Acetaminophen (Ofirmev) 1,000 mg in 100 mls @ 200 mls/hr IV Q6H [facility] Stop: 09/22/19 20:27 Last Infusion: 09/22/19 09:46 Dose: Infused Documented by: Piperacillin Sod/Tazobactam (Sod 2.25 gm/ Dextrose) 50 mls @ 100 mls/hr IV Q6H [facility]; Protocol Last Admin: 09/22/19 11:43 Dose: 100 mls/hr Documented by: Sodium Chloride (Sodium Chloride 0.9%) 1,000 mls @ 30 mls/hr IV .Q24H [facility] Last Admin: 09/21/19 22:15 Dose: 30 mls/hr Documented by: Ibuprofen (Motrin) 200 mg PO Q6HP PRN; Protocol PRN Reason: for fever Metoprolol Succinate (Toprol Xl) 50 mg PO BID [facility] Last Admin: 09/22/19 09:05 Dose: Not Given Documented by: Morphine Sulfate (Morphine) 4 mg IV Q4HP PRN; Protocol PRN Reason: Per Pain Protocol Ondansetron HCl (Zofran) 4 mg IV Q4HP PRN PRN Reason: Nausea And Vomiting Pantoprazole Sodium (Protonix) 40 mg PO QAMAC [facility] Last Admin: 09/22/19 07:55 Dose: Not Given Documented by: Sodium Chloride (Saline Flush) 10 ml IV Q8 [facility] A/P Narrative A/P Narrative: * Acute acalculous cholecystitis -laparoscopic cholecystectomy on hold due to A. fib RVR. Managed by Dr. Arnold. Remains a high risk intraoperative/immediate postoperative morbidity/mortality based on RCRI [employer] [employer] stratification. * A. fib RVR-continue rate control measures on beta-leatha. Depressed EF precluding CCB use. Check troponins. Anticoagulation on hold. Telemetry monitoring. Hold surgery for 24 hours. * History of systolic CHF, BNP 96070. Repeat chest x-ray * Hypertensive hypertrophic cardiomyopathy-echo on 07/14/19 - EF 25%. A stress test was done on 07/15/19 - no reversible ischemia. NICK inhibitor is on hold due to SHERRI. Continue beta-leatha * MR/AR stable * SHERRI on CKD. Creatinine 1.4 * Elevation of liver enzymes-secondary to cholecystitis. * Prophylaxis-anticoagulation on hold * CODE STATUS: DNR DNI Plan * Telemetry monitoring * Hold surgery for 24 hours * Beta-leatha/Rate control measures * Chest x-ray/troponin * Monitor renal function Time Spent With Patient Time: Total time spent is greater than 50% in coordination of care (as documented) at patient's floor/unit and/or counseling patient: Total time spent with greater than 50% in coordination of care (as documented) at patient's floor/unit and/or counseling patient:: Greater than 35 minutes QUALITY Stroke Symptom Onset Unknown: No VTE Deep Vein Thrombosis/Pulmonary Embolism Present on Admission: No
[2019-09-22] MEDS ORDERED: 0.9 % SODIUM CHLORIDE 1,000 ML IV SCH (15:17)
[2019-09-22] MEDS ORDERED: HYDROmorphone 0.5 MG/0.5 ML SYRINGE IV PRN (15:17)
[2019-09-22] MEDS ORDERED: ONDANSETRON 4 MG/2 ML VIAL IV PRN (15:17)
[2019-09-22] MEDS: METOPROLOL SUCCINATE 50 MG TAB.XL.24H PO SCH ×2 (15:32→23:59)
--- NOTE | 2019-09-22 15:35 | XRay Report ---
CLINICAL INFORMATION: SOb COMPARISON: 09/21/2019 FINDINGS: Mild cardiomegaly is unchanged. Mediastinum is unremarkable. Pulmonary vessels have returned to and normal caliber. Interstitial edema is improved. Small left pleural effusion unchanged. Small bibasilar infiltrates have developed. IMPRESSION: There complete resolution CHF New small bibasilar infiltrates or atelectasis. Interpreted and Authenticated by: Benoit Baugh 09/22/19
[2019-09-22] MEDS: FAMOTIDINE/PF 20 MG/2 ML VIAL IV SCH (20:30)
[2019-09-22] MEDS: 0.9 % SODIUM CHLORIDE 10 ML SYRINGE IV SCH (20:33)
[2019-09-22] MEDS: ALPRAZolam 0.25 MG TABLET PO PRN (20:33)
[2019-09-22] MEDS ORDERED: FAMOTIDINE/PF 20 MG/2 ML VIAL IV SCH (21:00)
[2019-09-22] MEDS ORDERED: 0.9 % SODIUM CHLORIDE 10 ML SYRINGE IV SCH (22:00)
[2019-09-23] MEDS: ACETAMINOPHEN 1,000 MG/100 ML BOTTLE IV SCH ×4 (03:19→23:46)
[2019-09-23] MEDS: 0.9 % SODIUM CHLORIDE 10 ML SYRINGE IV SCH ×4 (05:28→20:31)
[2019-09-23] MEDS: PIPERACILLIN SODIUM/TAZOBACTAM 2.25 GM in DEXTROSE 5% IN WATER 50 ML IV SCH ×3 (05:39→17:59)
[2019-09-23] MEDS: ALPRAZolam 0.25 MG TABLET PO PRN ×2 (05:55→20:31)
[2019-09-23 06:40] LABS: Basophils # (Auto) 0.04 K/mcL (0.00-0.30); Basophils % (Auto) 0.6 % (0.0-2.0); Eosinophils # (Auto) 0.11 K/mcL (0.00-0.70); Eosinophils % (Auto) 1.7 % (0.0-7.0); Granulocytes % (Auto) 62.5 % (38.0-78.0); Hematocrit 37.5 % (34.1-44.9); Hemoglobin 11.8 g/dL (11.2-15.7); Lymphocytes # (Auto) 1.65 K/mcL (1.50-4.80); Lymphocytes % (Auto) 26.2 % (15.5-49.0); Mean Cell Volume 98.4 fL (80.0-100.0); Mean Corpuscular HGB Conc 31.5 g/dL (31.0-36.0); Mean Platelet Volume 9.9 fL (7.4-10.4); Monocytes # (Auto) 0.57 K/mcL (0.10-0.90); Platelet Count 152 K/mcL (140-440); RBC 3.81 M/mcL (3.59-5.38); Red Cell Distribution Width 15.3 % (11.5-14.5); WBC 6.3 K/mcL (4.50-11.00)
[2019-09-23] MEDS: METOPROLOL SUCCINATE 50 MG TAB.XL.24H PO SCH ×2 (07:02→20:31)
[2019-09-23 07:22] LABS: Chloride 100 mmol/L (96-108)
[2019-09-23 07:23] LABS: ALT/SGPT 58 U/l (0-40); AST/SGOT 57 U/l (0-37); Albumin 3.2 gm/dL (3.2-5.2); Albumin/Globulin Ratio 1.6 (1.0-2.3); Alkaline Phosphatase 62 U/L (39-117); Bilirubin,Direct 0.3 mg/dL (0.0-0.3); Bilirubin,Total 1.1 mg/dL (0.0-1.0); Blood Urea Nitrogen 25 mg/dl (8-23); Calcium 8.1 mg/dl (8.6-10.4); Carbon Dioxide 17 mmol/L (22-30); Glomerular Filtration Rate 34; Glucose 112 mg/dL (70-105); Lactate Dehydrogenase 256 U/L (94-250); Phosphorous 4.6 mg/dL (2.7-4.5); Triglycerides 77 mg/dl (<150); Uric Acid 6.5 mg/dL (2.5-8.0)
[2019-09-23] MEDS ORDERED: PANTOPRAZOLE 40 MG PACKET PO SCH (07:30)
[2019-09-23] MEDS: FAMOTIDINE/PF 20 MG/2 ML VIAL IV SCH (09:05)
[2019-09-23] MEDS ORDERED: ALBUMIN HUMAN 25 GM/100 ML BAG IV ONE (09:15)
[2019-09-23] MEDS ORDERED: AMIODARONE 150 MG in DEXTROSE 5% IN WATER 50 ML IV ONE ×2 (09:24→09:45)
[2019-09-23] MEDS ORDERED: ESMOLOL 100 MG/10 ML VIAL IV ONE (09:33)
[2019-09-23] MEDS ORDERED: MIDAZOLAM 2 MG/2 ML VIAL ONE (09:33)
[2019-09-23] MEDS ORDERED: DEXAMETHASONE 10 MG/ML VIAL ONE (09:33)
[2019-09-23] MEDS ORDERED: LIDOCAINE HCL/PF 100 MG/5 ML SYRINGE IV ONE (09:33)
[2019-09-23] MEDS ORDERED: ETOMIDATE 20 MG/10 ML VIAL IV ONE (09:33)
[2019-09-23] MEDS ORDERED: fentaNYL 100 MCG/2 ML VIAL IV ONE (09:33)
[2019-09-23] MEDS ORDERED: ROCURONIUM 10 MG/ML ML IV ONE (09:33)
[2019-09-23] MEDS ORDERED: AMIODARONE 150 MG/3 ML VIAL IV ONE ×2 (09:33→09:45)
[2019-09-23] MEDS ORDERED: SUGAMMADEX SODIUM 200 MG/2 ML VIAL IV ONE (09:33)
[2019-09-23] MEDS ORDERED: AMIODARONE 360 MG in PREMIX 1 BAG IV SCH ×3 (10:00→16:00)
[2019-09-23] MEDS ORDERED: NALOXONE HCL 0.4 MG/ML VIAL IV PRN (10:23)
[2019-09-23] MEDS ORDERED: ATROPINE SULFATE 0.4 MG/ML VIAL IV PRN (10:23)
[2019-09-23] MEDS ORDERED: ONDANSETRON 4 MG/2 ML VIAL IV PRN ×2 (10:23→13:18)
[2019-09-23] MEDS ORDERED: diphenhydrAMINE 50 MG/ML VIAL IV PRN (10:23)
[2019-09-23] MEDS ORDERED: ACETAMINOPHEN 1,000 MG/100 ML BOTTLE IV ONE (10:23)
[2019-09-23] MEDS ORDERED: IPRATROPIUM/ALBUTEROL 3 ML AMPUL.NEB NEB PRN (10:23)
[2019-09-23] MEDS ORDERED: METOPROLOL TARTRATE 5 MG/5 ML VIAL IV PRN (10:23)
[2019-09-23] MEDS ORDERED: FLUMAZENIL 0.1 MG/ML ML IV PRN (10:23)
[2019-09-23] MEDS ORDERED: PROMETHAZINE 25 MG/ML VIAL IV PRN (10:23)
[2019-09-23] MEDS ORDERED: ePHEDrine 50 MG/ML AMPUL IV PRN (10:23)
[2019-09-23] MEDS ORDERED: HYDROmorphone 0.5 MG/0.5 ML SYRINGE IV PRN ×2 (10:23→13:18)
[2019-09-23] MEDS ORDERED: LACTATED RINGERS 1,000 ML IV SCH (10:30)
--- NOTE | 2019-09-23 10:32 | Internal Med Progress Note ---
SUBJECTIVE Subjective Patient information: Note initiated : 09/23/19 at 10:30 am Service Date, if different from initiated Date: [] Patient: Liane James 89 y/o F admitted on 09/22/19 for n/v/d. Chief Complaint: [] Principal diagnosis: atrial fibrillation with rapid ventricular response Interval history: Patient is a 89-year-old female with a history of systolic CHF, hypertensive hypertrophic cardiomyopathy, mitral regurgitation, aortic regurgitation, chronic atrial fibrillation, hypertension, and CKD who was admitt ed to the hospital from laparoscopic cholecystectomy tomorrow. Medical consult was requested by surgeon Dr. Arnold for preop consultation. Patient states that she has been having intermittent right upper abdominal pain for more than 2 months. The pain is sharp in nature and radiates to right shoulder and the back. When I saw this patient in her room, she was fine. Denied headache, dizziness, chest pain, shortness of breath, palpitation, abdominal pain, fever, chills, nausea, vomiting, diarrhea or dysuria. 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 Denied smoking or drink a lcohol. Denies medical problems with lungs. 09/21 Pt is fine. Denied medical complaints. She is ready for the procedure. No overnight events Surgery note 09/21- patient was moved to the operating table in preparation for induction of anesthesia when she developed atrial fibrillation with rapid ventricular response. Her heart rate was up to 180 range. She was saturating at 100% and her respirations were about 20. She did have slight mental change which recovered after about 5 minutes. She was moved back to recovery area and was given metoprolol and verapamil by anesthesia. At the present time she is alert and awake with heart rate about 110-112. She is talking appropriately and has n o complaint of shortness of breath or chest discomfort. EKG shows atrial fibrillation with RVR. I have asked the hospitalist to evaluate her and hopefully we can block her heart rate adequately enough that we can proceed with her surgery tomorrow. i DISCUSSED THIS WITH HER SON Neymar and he relates verbally that he understands and supports our plan. 09/21-hospitalist review for A. fib RVR. Patient seen in room shortly after arrival from PACU. Denies chest pain diaphoresis lightheadedness dizziness or palpitation. Responded well to metoprolol. Blood pressure improved. Continue monitoring/telemetry/as needed rate control measures. Troponins negative. Chest x-ray total resolution of CHF . 09/22-patient doing a lot better. No overnight events except for brief episode of V. tach. No RVR. Will review postop today. Currently n.p.o. No fever chills or concerns per staff. Constitutional Vitals: Vital Signs Temp Pulse Resp BP Pulse Ox 98.3 F 98 H 29 H 119/95 96 09/23/19 08:00 09/23/19 08:00 09/23/19 08:00 09/23/19 08:00 09/23/19 08:00 Period Temp Pulse Resp BP Sys/Egan Pulse Ox Last 24 Hr 96.9 F-99.2 F 83-169 15-36 115-151/72-116 93-100 Intake and Output 09/22/19 09/23/19 09/23/19 21:59 05:59 13:59 Intake Total 2020 410 150 Output Total 100 100 Balance 2019 310 50 Weight 76.43 kg Intake & Output: Intake & Output 09/22/19 09/23/19 09/23/19 21:59 05:59 13:59 Intake Total 2020 410 150 Output Total 100 100 Balance 2019 310 50 Weight 76.43 kg Intake: IV 1720 50 150 Sodium Chloride 0.9% 1,000 ml @ 1570 30 mls/hr IV .Q24H [facility] Rx#: [id number] Zosyn 2.25 gm In Dextrose 5% in 50 50 50 Water 50 ml @ 100 mls/hr IV Q6H [facility] Rx#:[id number] Oral 360 IV - Manual Only 300 Output: Void Amount 100 100 Other: Urine Appearance Clear Clear Urine Color Bright Yellow Bright Yellow Bright Yellow Urine Odor Normal Normal # Voids 1 1 alert and oriented Telemetry A. fib No anxiety OBJ DATA Labs CBC & Chem 7: 09/23/19 04:36 09/23/19 04:36 Labs: Abnormal Lab Results 09/23/19 09/23/19 09/22/19 04:36 04:36 14:54 RDW 15.3 H Sodium 132 L Carbon Dioxide 17 L BUN 25 H Creatinine 1.4 H Glucose 112 H Calcium 8.1 L Phosphorus 4.6 H Total Bilirubin 1.1 H Direct Bilirubin GGT 51 H AST 57 H ALT 58 H Lactate Dehydrogenase 256 H NT-Pro-B Natriuret Pep 59350.0 H Total Protein 5.2 L Globulin 2.0 L Urine Protein Hyaline Casts 09/22/19 09/22/19 09/21/19 05:28 05:18 17:20 RDW 15.1 H Sodium 132 L Carbon Dioxide 19 L BUN 27 H Creatinine 1.4 H Glucose 107 H Calcium 8.4 L Phosphorus Total Bilirubin 1.2 H Direct Bilirubin 0.4 H GGT 46 H AST 59 H ALT 57 H Lactate Dehydrogenase NT-Pro-B Natriuret Pep Total Protein 5.4 L Globulin 2.1 L Urine Protein 30 A Hyaline Casts 7 H 09/21/19 09/21/19 09/21/19 15:49 15:48 15:48 RDW 14.8 H Sodium 131 L Carbon Dioxide 18 L BUN 29 H Creatinine 1.4 H Glucose 126 H Calcium Phosphorus Total Bilirubin 1.5 H Direct Bilirubin GGT AST 73 H ALT 65 H Lactate Dehydrogenase NT-Pro-B Natriuret Pep 97409.0 H Total Protein Globulin Urine Protein Hyaline Casts Meds: Medications Albuterol/Ipratropium (Duoneb) 3 ml NEB ONCE PRN PRN Reason: Wheezing Stop: 09/23/19 12:23 Alprazolam (Xanax) 0.25 mg PO BID PRN PRN Reason: anxiety Last Admin: 09/23/19 05:55 Dose: 0.25 mg Documented by: Atropine Sulfate (Atropine Sulfate) 0.4 mg IV ONCE PRN PRN Reason: Bradycardia Stop: 09/23/19 12:24 Diphenhydramine HCl (Benadryl) 25 mg IV ONCE PRN PRN Reason: ITCH Stop: 09/23/19 12:24 Ephedrine Sulfate (Akovaz) 0 mg IV Q30M PRN PRN Reason: Hypotension Stop: 09/23/19 12:24 Famotidine (Pepcid) 20 mg IV Q12 [facility] Last Admin: 09/23/19 09:05 Dose: Not Given Documented by: Fentanyl (Sublimaze) 25 mcg IV Q2M PRN PRN Reason: Pain Stop: 09/23/19 12:24 Flumazenil (Romazicon) 0.1 mg IV Q2MIN PRN PRN Reason: BENZODIAZEPINE REVERSAL Stop: 09/23/19 12:24 Hydromorphone HCl (Dilaudid) 0.5 mg IV Q2HP PRN; Protocol PRN Reason: Per Pain Protocol Hydromorphone HCl (Dilaudid) 0.5 mg IV Q15MIN PRN; Protocol PRN Reason: Per Pain Protocol Sodium Chloride (Sodium Chloride 0.9%) 1,000 mls @ 30 mls/hr IV .Q24H [facility] Last Admin: 09/22/19 20:29 Dose: 30 mls/hr Documented by: Acetaminophen (Ofirmev) 1,000 mg in 100 mls @ 200 mls/hr IV Q6H [facility] Last Admin: 09/23/19 08:38 Dose: Not Given Documented by: Piperacillin Sod/Tazobactam (Sod 2.25 gm/ Dextrose) 50 mls @ 100 mls/hr IV Q6H [facility]; Protocol Last Infusion: 09/23/19 06:29 Dose: Infused Documented by: AMIODARONE 360 mg/ Premix 200 mls @ 33.333 mls/hr IV .Q6H [facility]; Protocol Stop: 09/23/19 16:00 AMIODARONE 360 mg/ Premix 200 mls @ 16.667 mls/hr IV .Q12H [facility]; Protocol Stop: 09/24/19 10:00 Lactated Ringer's (Lactated Ringers) 1,000 mls @ 20 mls/hr IV .Q24H [facility] Stop: 09/23/19 12:23 Acetaminophen (Ofirmev) 1,000 mg in 100 mls @ 200 mls/hr IV ONCE ONE Stop: 09/23/19 10:52 Metoprolol Succinate (Toprol Xl) 50 mg PO BID [facility] Last Admin: 09/23/19 07:02 Dose: 50 mg Documented by: Metoprolol Tartrate (Lopressor) 2.5 mg IV Q5MIN PRN PRN Reason: Tachyarrhythmias Stop: 09/23/19 12:24 Naloxone HCl (Narcan) 0.1 mg IV Q2MIN PRN PRN Reason: Opiate Reversal Stop: 09/23/19 12:24 Ondansetron HCl (Zofran) 4 mg IV Q4HP PRN PRN Reason: Nausea And Vomiting Ondansetron HCl (Zofran) 4 mg IV ONCE PRN PRN Reason: Nausea And Vomiting Stop: 09/23/19 12:24 Pantoprazole Sodium (Protonix) 40 mg PO QAMAC [facility] Last Admin: 09/23/19 07:02 Dose: Not Given Documented by: Promethazine HCl (Phenergan) 6.25 mg IV Q15M PRN PRN Reason: Nausea And Vomiting Stop: 09/23/19 12:24 Sodium Chloride (Saline Flush) 10 ml IV Q8 [facility] Last Admin: 09/23/19 05:28 Dose: Not Given Documented by: A/P Assessment and plan (1) Atrial fibrillation with rapid ventricular response: Status: Acute (2) Chronic atrial fibrillation: Assessment and plan: patient is on low-dose apixaban and should do well for laparoscopic procedure Status: Acute (3) Acute acalculous cholecystitis: Assessment and plan: Zosyn every 6 hours when necessary to be renally dosed Status: Acute Narrative A/P Narrative: * Acute acalculous cholecystitis -laparoscopic cholecystectomy on hold due to A. fib RVR. Managed by Dr. Arnold. Remains a high risk intraoperative/immediate postoperative morbidity/mortality based on [employer] [place] [employer] stratification. * A. fib RVR-now rate controlled on beta-leatha. Troponins negative. * History of systolic CHF, BNP 98366. Repeat chest x-ray interval resolution of CHF. Well compensated. * Hypertensive hypertrophic cardiomyopathy-echo on 07/14/19 - EF 25%. Stress test was done on 07/15/19 - no reversible ischemia. NICK inhibitor is on hold due to SHERRI. Continue beta-leatha * MR/AR stable * SHERRI on CKD. Creatinine 1.4 * Elevation of liver enzymes-secondary to cholecystitis. * Prophylaxis-anticoagulation on hold * CODE STATUS: DNR DNI Plan * Review postop * Continue beta-leatha/Rate control measures Time Spent With Patient Time: Total time spent is greater than 50% in coordination of care (as documented) at patient's floor/unit and/or counseling patient: QUALITY Stroke Symptom Onset Unknown: No VTE Deep Vein Thrombosis/Pulmonary Embolism Present on Admission: No
--- NOTE | 2019-09-23 11:28 | Brief Operative Note ---
Brief Operative Note Date of procedure: 09/23/19 Pre-op diagnosis: acute cholecystitis Post-op diagnosis: other (acute cholecystitis) Procedure: laparoscopic cholecystectomy with open laparotomy for control of liver hemorrhage Grafts/Implants: No (liane drain x1) Anesthesia: GETA Findings: acute severe inflammation of gallbladder with large vein in subserosa in bed of liver that was torn requiring open laparotomy for control of hemorrhage Complications: other (intraoperative bleeding from bed of liver ) Surgeon: Ki Arnold Estimated blood loss (cc): 200 Specimens Removed/Pathology: other (gallbladder) Condition: stable Disposition: PACU
[2019-09-23] MEDS: fentaNYL 100 MCG/2 ML VIAL IV PRN ×3 (11:35→11:47)
--- NOTE | 2019-09-23 12:04 | XRay Report ---
CLINICAL INFORMATION: intraoperative COMPARISON: None. FINDINGS: Stool gas pattern is normal. A drain overlies the central abdomen and pelvis. No definite radiopaque sponge. A vague 10 cm rounded density in the mid abdomen is likely artifact or an overlying device. IMPRESSION: No acute disease. No definite sponge identified. Interpreted and Authenticated by: Benoit Baugh 09/23/19
[2019-09-23] MEDS: 0.9 % SODIUM CHLORIDE 1,000 ML IV SCH (13:20)
[2019-09-23 13:52] LABS: Basophils # (Auto) 0.04 K/mcL (0.00-0.30); Basophils % (Auto) 0.5 % (0.0-2.0); Eosinophils # (Auto) 0.03 K/mcL (0.00-0.70); Eosinophils % (Auto) 0.4 % (0.0-7.0); Granulocytes % (Auto) 74.6 % (38.0-78.0); Hematocrit 31.8 % (34.1-44.9); Hemoglobin 10.4 g/dL (11.2-15.7); Lymphocytes # (Auto) 1.45 K/mcL (1.50-4.80); Lymphocytes % (Auto) 19.3 % (15.5-49.0); Mean Cell Volume 97.5 fL (80.0-100.0); Mean Corpuscular HGB Conc 32.7 g/dL (31.0-36.0); Monocytes # (Auto) 0.39 K/mcL (0.10-0.90); Monocytes % (Auto) 5.2 % (1.0-12.0); Platelet Count 168 K/mcL (140-440); RBC 3.26 M/mcL (3.59-5.38); Red Cell Distribution Width 15.2 % (11.5-14.5); WBC 7.5 K/mcL (4.50-11.00)
[2019-09-23] MEDS ORDERED: ACETAMINOPHEN 1,000 MG/100 ML BOTTLE IV SCH (14:30)
[2019-09-24] MEDS: PIPERACILLIN SODIUM/TAZOBACTAM 2.25 GM in DEXTROSE 5% IN WATER 50 ML IV SCH ×4 (00:18→17:50)
[2019-09-24] MEDS: ACETAMINOPHEN 1,000 MG/100 ML BOTTLE IV SCH ×3 (05:31→17:49)
[2019-09-24] MEDS: 0.9 % SODIUM CHLORIDE 10 ML SYRINGE IV SCH ×3 (06:01→21:03)
[2019-09-24 06:36] LABS: Basophils # (Auto) 0.01 K/mcL (0.00-0.30); Basophils % (Auto) 0.1 % (0.0-2.0); Eosinophils # (Auto) 0 K/mcL (0.00-0.70); Eosinophils % (Auto) 0 % (0.0-7.0); Granulocytes % (Auto) 76.5 % (38.0-78.0); Hematocrit 34.9 % (34.1-44.9); Lymphocytes # (Auto) 2.07 K/mcL (1.50-4.80); Mean Cell Volume 99.1 fL (80.0-100.0); Mean Corpuscular HGB Conc 31.5 g/dL (31.0-36.0); Mean Platelet Volume 10.1 fL (7.4-10.4); Monocytes # (Auto) 0.78 K/mcL (0.10-0.90); Monocytes % (Auto) 6.4 % (1.0-12.0); Platelet Count 165 K/mcL (140-440); RBC 3.52 M/mcL (3.59-5.38); Red Cell Distribution Width 15.6 % (11.5-14.5); WBC 12.2 K/mcL (4.50-11.00)
[2019-09-24 07:07] LABS: ALT/SGPT 63 U/l (0-40); AST/SGOT 65 U/l (0-37); Albumin 3.4 gm/dL (3.2-5.2); Albumin/Globulin Ratio 1.7 (1.0-2.3); Alkaline Phosphatase 55 U/L (39-117); Bilirubin,Direct 0.3 mg/dL (0.0-0.3); Bilirubin,Total 0.8 mg/dL (0.0-1.0); Blood Urea Nitrogen 25 mg/dl (8-23); Calcium 8.1 mg/dl (8.6-10.4); Carbon Dioxide 18 mmol/L (22-30); Chloride 97 mmol/L (96-108); Glomerular Filtration Rate 31; Glucose 152 mg/dL (70-105); Lactate Dehydrogenase 237 U/L (94-250); Phosphorous 5.3 mg/dL (2.7-4.5); Triglycerides 103 mg/dl (<150); Uric Acid 5.9 mg/dL (2.5-8.0)
[2019-09-24] MEDS: PANTOPRAZOLE 40 MG PACKET PO SCH (07:22)
[2019-09-24] MEDS: METOPROLOL SUCCINATE 50 MG TAB.XL.24H PO SCH ×2 (08:56→21:02)
--- NOTE | 2019-09-24 09:41 | Internal Med Progress Note ---
SUBJECTIVE Subjective Patient information: Note initiated : 09/24/19 at 9:37 am Service Date, if different from initiated Date: [] Patient: Liane James 89 y/o F admitted on 09/22/19 for n/v/d. Chief Complaint: [] Principal diagnosis: atrial fibrillation with rapid ventricular response Interval history: Patient is a 89-year-old female with a history of systolic CHF, hypertensive hypertrophic cardiomyopathy, mitral regurgitation, aortic regurgitation, chronic atrial fibrillation, hypertension, and CKD who was admitted to the hospital from laparoscopic cholecystectomy tomorrow. Medical consult was requested by surgeon Dr. Arnold for preop consultation. Patient states that she has been having intermittent right upper abdominal pain for more than 2 months. The pain is sharp in nature and radiates to right shoulder and the back. When I saw this patient in her room, she was fine. Denied headache, dizziness, chest pain, shortness of breath, palpitation, abdominal pain, fever, chills, nausea, vomiting, diarrhea or dysuria. 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 Denied smoking or drink al cohol. Denies medical problems with lungs. 09/21 Pt is fine. Denied medical complaints. She is ready for the procedure. No overnight events Surgery note 09/21- patient was moved to the operating table in preparation for induction of anesthesia when she developed atrial fibrillation with rapid ventricular response. Her heart rate was up to 180 range. She was saturating at 100% and her respirations were about 20. She did have slight mental change which recovered after about 5 minutes. She was moved back to recovery area and was given metoprolol and verapamil by anesthesia. At the present time she is alert and awake with heart rate about 110-112. She is talking appropriately and has no complaint of shortness of breath or chest discomfort. EKG shows atrial fibrillation with RVR. I have asked the hospitalist to evaluate her and hopefully we can block her heart rate adequately enough that we can proceed with her surgery tomorrow. i DISCUSSED THIS WITH HER SON Neymar and he relates verbally that he understands and supports our plan. 09/21-hospitalist review for A. fib RVR. Patient seen in room shortly after arrival from PACU. Denies chest pain diaphoresis lightheadedness dizziness or palpitation. Responded well to metoprolol. Blood pressure improved. Continue monitoring/telemetry/as needed rate control measures. Troponins negative. Chest x-ray total resolution of CHF. 09/22-patient doing a lot better. No overnight events except for brief episode of V. tach. No RVR. Will review postop today. Currently n.p.o. No fever chills or concerns per staff. 09/23-patient postop day 1. Doing well. Minimal operative site tenderness. No anxiety. No fever chills. White count 12.2.Creatinine 1.5, LFTs downtrending. Continue postoperative care as per surgery. No overnight A. fib RVR. Restart apixaban continue metoprolol Constitutional Vitals: Vital Signs Temp Pulse Resp BP Pulse Ox 97.6 F 83 14 102/75 95 09/24/19 04:01 09/24/19 06:01 09/24/19 06:01 09/24/19 06:01 09/24/19 06:01 Period Temp Pulse Resp BP Sys/Egan Pulse Ox Last 24 Hr 96.6 F-98.2 F 78-105 10-27 100-129/60-86 93-100 Intake and Output 09/23/19 09/24/19 09/24/19 21:59 05:59 13:59 Intake Total 200 150 630 Output Total 30 420 150 Balance 170 -270 480 Weight 77.734 kg Intake & Output: Intake & Output 09/23/19 09/24/19 09/24/19 21:59 05:59 13:59 Intake Total 200 150 630 Output Total 30 420 150 Balance 170 -270 480 Weight 77.734 kg Intake: IV 200 150 150 Zosyn 2.25 gm In Dextrose 5% in 100 50 50 Water 50 ml @ 100 mls/hr IV Q6H [facility] Rx#:[id number] Oral 480 Output: Drainage 20 Abdomen 20 Drainage 30 Abdomen 30 Void Amount 400 150 Other: Urine Appearance Clear Clear Urine Color Bright Yellow Bright Yellow Urine Odor Normal Normal OBJ DATA Labs CBC & Chem 7: 09/24/19 04:32 09/24/19 04:32 Labs: Abnormal Lab Results 09/24/19 09/24/19 09/23/19 04:32 04:32 12:28 WBC 12.2 H RBC 3.52 L 3.26 L Hgb 11.0 L 10.4 L Hct 31.8 L RDW 15.6 H 15.2 H Gran # 9.29 H Lymph # (Auto) 1.45 L Sodium 132 L Carbon Dioxide 18 L Anion Gap 17.0 H BUN 25 H Creatinine 1.5 H Glucose 152 H Calcium 8.1 L Phosphorus 5.3 H Total Bilirubin Direct Bilirubin GGT 46 H AST 65 H ALT 63 H Lactate Dehydrogenase NT-Pro-B Natriuret Pep Total Protein 5.4 L Globulin 2.0 L Urine Protein Hyaline Casts 09/23/19 09/23/19 09/22/19 04:36 04:36 14:54 WBC RBC Hgb Hct RDW 15.3 H Gran # Lymph # (Auto) Sodium 132 L Carbon Dioxide 17 L Anion Gap BUN 25 H Creatinine 1.4 H Glucose 112 H Calcium 8.1 L Phosphorus 4.6 H Total Bilirubin 1.1 H Direct Bilirubin GGT 51 H AST 57 H ALT 58 H Lactate Dehydrogenase 256 H NT-Pro-B Natriuret Pep 88376.0 H Total Protein 5.2 L Globulin 2.0 L Urine Protein Hyaline Casts 09/22/19 09/22/19 09/21/19 05:28 05:18 17:20 WBC RBC Hgb Hct RDW 15.1 H Gran # Lymph # (Auto) Sodium 132 L Carbon Dioxide 19 L Anion Gap BUN 27 H Creatinine 1.4 H Glucose 107 H Calcium 8.4 L Phosphorus Total Bilirubin 1.2 H Direct Bilirubin 0.4 H GGT 46 H AST 59 H ALT 57 H Lactate Dehydrogenase NT-Pro-B Natriuret Pep Total Protein 5.4 L Globulin 2.1 L Urine Protein 30 A Hyaline Casts 7 H 09/21/19 09/21/19 09/21/19 15:49 15:48 15:48 WBC RBC Hgb Hct RDW 14.8 H Gran # Lymph # (Auto) Sodium 131 L Carbon Dioxide 18 L Anion Gap BUN 29 H Creatinine 1.4 H Glucose 126 H Calcium Phosphorus Total Bilirubin 1.5 H Direct Bilirubin GGT AST 73 H ALT 65 H Lactate Dehydrogenase NT-Pro-B Natriuret Pep 11608.0 H Total Protein Globulin Urine Protein Hyaline Casts Meds: Medications Alprazolam (Xanax) 0.25 mg PO BIDP PRN PRN Reason: anxiety Last Admin: 09/23/19 20:31 Dose: 0.25 mg Documented by: Hydromorphone HCl (Dilaudid) 0.5 mg IV Q2HP PRN; Protocol PRN Reason: Per Pain Protocol Last Admin: 09/23/19 17:28 Dose: 0.5 mg Documented by: Sodium Chloride (Sodium Chloride 0.9%) 1,000 mls @ 30 mls/hr IV .Q24H [facility] Last Admin: 09/23/19 13:20 Dose: Not Given Documented by: Piperacillin Sod/Tazobactam (Sod 2.25 gm/ Dextrose) 50 mls @ 100 mls/hr IV Q6H [facility]; Protocol Last Infusion: 09/24/19 06:30 Dose: Infused Documented by: Acetaminophen (Ofirmev) 1,000 mg in 100 mls @ 200 mls/hr IV Q6H [facility] Last Infusion: 09/24/19 06:43 Dose: Infused Documented by: Metoprolol Succinate (Toprol Xl) 50 mg PO BID [facility] Last Admin: 09/24/19 08:56 Dose: 50 mg Documented by: Ondansetron HCl (Zofran) 4 mg IV Q4HP PRN PRN Reason: Nausea And Vomiting Pantoprazole Sodium (Protonix) 40 mg PO QAMAC [facility] Last Admin: 09/24/19 07:22 Dose: 40 mg Documented by: Sodium Chloride (Saline Flush) 10 ml IV Q8 [facility] Last Admin: 09/24/19 06:01 Dose: 10 ml Documented by: A/P Assessment and plan (1) Atrial fibrillation with rapid ventricular response: Status: Acute (2) Chronic atrial fibrillation: Assessment and plan: patient is on low-dose apixaban and should do well for laparoscopic procedure Status: Acute (3) Acute acalculous cholecystitis: Assessment and plan: Zosyn every 6 hours when necessary to be renally dosed Status: Acute Narrative A/P Narrative: * Acute acalculous cholecystitis -status post laparoscopic cholecystectomy managed per surgery. * A. fib RVR-now rate controlled on beta-leatha. Patient was loaded on a miodarone during surgery. Discontinue. Restart apixaban for DVT prophylaxis. * History of systolic CHF, BNP 43011. Repeat chest x-ray interval resolution of CHF. Well compensated. * Hypertensive hypertrophic cardiomyopathy-echo on 07/14/19 - EF 25%. Stress test was done on 07/15/19 - no reversible ischemia. NICK inhibitor is on hold due to SHERRI. Continue beta-leatha * MR/AR stable * SHERRI on CKD. Creatinine 1.5 * Elevation of liver enzymes-secondary to cholecystitis. Improving postop * Prophylaxis-restart anticoagulation * CODE STATUS: DNR DNI Plan * Restart anticoagulation * Continue beta-leatha * PT OT nutrition support * Discharge planning Time Spent With Patient Time: Total time spent is greater than 50% in coordination of care (as documented) at patient's floor/unit and/or counseling patient: QUALITY Stroke Symptom Onset Unknown: No VTE Deep Vein Thrombosis/Pulmonary Embolism Present on Admission: No
[2019-09-24] MEDS: ALPRAZolam 0.25 MG TABLET PO PRN ×2 (11:42→21:02)
--- NOTE | 2019-09-24 11:52 | Surgical Pathology Report ---
HISTOLOGY SPECIMEN MICROSCOPIC DIAGNOSIS GALLBLADDER, CHOLECYSTECTOMY: -- MILD CHRONIC CHOLECYSTITIS. (RLF:sln) CLINICAL HISTORY Abdominal pain. PROCEDURAL IMPRESSION Acute acalculous cholecystitis. GROSS DESCRIPTION Received in formalin labeled gallbladder, is a delgado-hwang gallbladder. It is 6.5 x 3.6 x 1.5 cm. There is a metal clip on the duct. The mucosa is green-hwang and velvety. The wall is up to 0.2 cm thick with up to 0.5 cm of hwang attached fat. Grossly there are no stones identified. Radiation Protection Technician sections submitted in one cassette. (SCB:adj) Electronically Signed by: Ami Hinds M.D.
--- NOTE | 2019-09-24 15:57 | General Surgery Progress Note ---
SUBJECTIVE Subjective Patient information: Note initiated : 09/24/19 at 3:51 pm Service Date, if different from initiated Date: [] Patient: Liane James 89 y/o F admitted on 09/22/19 for n/v/d. Chief Complaint: [] Principal diagnosis: acalculous cholecystitis Interval history: patient is doing well. She has not had any respiratory difficulty. Her heart rate has been effectively controlled less than 100 bpm. She denies any chest pain. The bloody drainage is significantly decreased in her SKY canister. BUN 25, creatinine 1.5, bilirubin 0.8, alk phosphatase 55, white blood count 12.2, hemoglobin 11, hematocrit 30 4.. Constitutional Vitals: Vital Signs Temp Pulse Resp BP Pulse Ox 97.6 F 93 H 28 H 116/83 99 09/24/19 04:01 09/24/19 07:01 09/24/19 13:33 09/24/19 07:01 09/24/19 07:01 Period Temp Pulse Resp BP Sys/Egan Pulse Ox Last 24 Hr 97.5 F-98.2 F 78-105 - 100-124/60-83 94-99 Intake and Output 09/24/19 09/24/19 09/24/19 05:59 13:59 21:59 Intake Total 150 680 Output Total 420 150 Balance -270 530 Intake & Output: Intake & Output 09/24/19 09/24/19 09/24/19 05:59 13:59 21:59 Intake Total 150 680 Output Total 420 150 Balance -270 530 Intake: IV 150 200 Zosyn 2.25 gm In Dextrose 5% in 50 100 Water 50 ml @ 100 mls/hr IV Q6H [facility] Rx#:[id number] Oral 480 Output: Drainage 20 Abdomen 20 Void Amount 400 150 Other: Urine Appearance Clear Urine Color Bright Yellow Urine Odor Normal Head Head exam: Present atraumatic, normal inspection and normocephalic Eye Eye exam: Present EOMI Pupils: Present normal accommodation and PERRL ENT ENT exam: Present mucous membranes moist, normal exam and normal oropharynx Neck Neck exam: Present full ROM; Absent lymphadenopathy, tenderness and thyromegaly Respiratory Respiratory exam: Present normal respiratory exam and CTAB; Absent rales, rhonchi and wheezes Cardiovascular Cardiovascular exam: Present irregular rhythm (irregularly irregular rhythm heart rate about 90), +S1 and +S2; Absent JVD GI/Abdominal GI/Abdominal exam: Present normal bowel sounds, soft and tenderness (mild tenderness around port sites and incision); Absent distended and mass Extremities Exam Extremities exam: Present full ROM and normal inspection; Absent pedal edema and tenderness Back Exam Back exam: Present full ROM and normal inspection Neurological Exam Neurological exam: Present alert, CN II-XII intact, normal gait, oriented X3 and reflexes normal Psychiatric Psychiatric exam: Present normal affect and normal mood Skin Skin exam: Present normal color and warm; Absent cyanosis and pallor A/P Assessment and plan (1) Acute acalculous cholecystitis: Status: Acute (2) Atrial fibrillation with rapid ventricular response: Status: Acute (3) Hypertensive hypertrophic cardiomyopathy, with heart failure: Status: Acute (4) Acute on chronic renal failure: Status: Acute Qualifiers: Chronic kidney disease stage: stage 3 (moderate) Narrative A/P Narrative: patient is clinically stable. Her pain is well controlled. There is no significant bleeding. Will withhold anticoagulants for another 24- 36 hours. We will check CBC in a.m. Time Spent With Patient Time: Total time spent is greater than 50% in coordination of care (as documented) at patient's floor/unit and/or counseling patient:
[2019-09-24] MEDS: BACLOFEN 10 MG TABLET PO SCH (21:02)
[2019-09-24] MEDS: 0.9 % SODIUM CHLORIDE 1,000 ML IV SCH (22:46)
[2019-09-25] MEDS: PIPERACILLIN SODIUM/TAZOBACTAM 2.25 GM in DEXTROSE 5% IN WATER 50 ML IV SCH ×3 (00:07→13:00)
[2019-09-25] MEDS: ACETAMINOPHEN 1,000 MG/100 ML BOTTLE IV SCH ×3 (00:47→13:00)
[2019-09-25] MEDS: 0.9 % SODIUM CHLORIDE 10 ML SYRINGE IV SCH (05:23)
[2019-09-25] MEDS: BACLOFEN 10 MG TABLET PO SCH (08:33)
[2019-09-25] MEDS: PANTOPRAZOLE 40 MG PACKET PO SCH (08:33)
[2019-09-25] MEDS: METOPROLOL SUCCINATE 50 MG TAB.XL.24H PO SCH (08:34)
[2019-09-25 10:10] LABS: Basophils # (Auto) 0.04 K/mcL (0.00-0.30); Basophils % (Auto) 0.4 % (0.0-2.0); Eosinophils # (Auto) 0.18 K/mcL (0.00-0.70); Eosinophils % (Auto) 1.6 % (0.0-7.0); Granulocytes % (Auto) 68.5 % (38.0-78.0); Hematocrit 33.6 % (34.1-44.9); Lymphocytes # (Auto) 2.62 K/mcL (1.50-4.80); Lymphocytes % (Auto) 23.3 % (15.5-49.0); Mean Cell Volume 96.8 fL (80.0-100.0); Mean Corpuscular HGB Conc 32.7 g/dL (31.0-36.0); Mean Platelet Volume 10.2 fL (7.4-10.4); Monocytes % (Auto) 6.2 % (1.0-12.0); Platelet Count 180 K/mcL (140-440); RBC 3.47 M/mcL (3.59-5.38); Red Cell Distribution Width 15.9 % (11.5-14.5); WBC 11.2 K/mcL (4.50-11.00)
[2019-09-25 10:56] LABS: ALT/SGPT 54 U/l (0-40); AST/SGOT 47 U/l (0-37); Albumin 3.2 gm/dL (3.2-5.2); Albumin/Globulin Ratio 1.4 (1.0-2.3); Alkaline Phosphatase 58 U/L (39-117); Bilirubin,Direct 0.3 mg/dL (0.0-0.3); Blood Urea Nitrogen 26 mg/dl (8-23); Carbon Dioxide 17 mmol/L (22-30); Chloride 98 mmol/L (96-108); Globulin 2.3 gm/dL (2.2-3.7); Glomerular Filtration Rate 29; Glucose 113 mg/dL (70-105); Lactate Dehydrogenase 222 U/L (94-250); Triglycerides 117 mg/dl (<150); Uric Acid 5.6 mg/dL (2.5-8.0)
[2019-09-25 11:00] LABS: Phosphorous 3.3 mg/dL (2.7-4.5)
--- NOTE | 2019-09-25 11:17 | Internal Med Progress Note ---
SUBJECTIVE Subjective Patient information: Note initiated : 09/25/19 at 11:12 am Service Date, if different from initiated Date: [] Patient: Liane Jaems 89 y/o F admitted on 09/22/19 for n/v/d. Chief Complaint: [] Principal diagnosis: atrial fibrillation with rapid ventricular response Interval history: Patient is a 89-year-old female with a history of systolic CHF, hypertensive hypertrophic cardiomyopathy, mitral regurgitation, aortic regurgitation, chronic atrial fibrillation, hypertension, and CKD who was admitted to the hospital from laparoscopic cholecystectomy tomorrow. Medical consult was requested by surgeon Dr. Arnold for preop consultation. Patient states that she has been having intermittent right upper abdominal pain for more than 2 months. The pain is sharp in nature and radiates to right shoulder and the back. When I saw this patient in her room, she was fine. De nied headache, dizziness, chest pain, shortness of breath, palpitation, abdominal pain, fever, chills, nausea, vomiting, diarrhea or dysuria. 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 Denied smoking or drink alcohol. Denies medical problems with lungs. 09/21 Pt is fine. Denied medical complaints. She is ready for the procedure. No overnight events Surgery note 09/21- patient was moved to the operating table in preparation for induction of anesthesia when she developed atrial fibrillation with rapid ventricular response. Her heart rate was up to 180 range. She was saturating at 100% and her respirations were about 20. She did have slight mental change which recovered after about 5 minutes. She was moved back to recovery area and was given metoprolol and verapamil by anesthesia. At the present time she is alert and awake with heart rate about 110-112. She is talking appropriately and has no complaint of shortness of breath or chest discomfort. EKG shows atrial fibrillation with RVR. I have asked the hospitalist to evaluate her and hopefully we can block her heart rate adequately enough that we can proceed with her surgery tomorrow. i DISCUSSED THIS WITH HER SON Neymar and he relates verbally that he understands and supports our plan. 09/21-hospitalist review for A. fib RVR. Patient seen in room shortly after arrival from PACU. Denies chest pain diap horesis lightheadedness dizziness or palpitation. Responded well to metoprolol. Blood pressure improved. Continue monitoring/telemetry/as needed rate control measures. Troponins negative. Chest x-ray total resolution of CHF. 09/22-patient doing a lot better. No overnight events except for brief episode of V. tach. No RVR. Will review postop today. Currently n.p.o. No fever chills or concerns per staff. 09/23-patient postop day 1. Doing well. Minimal operative site tenderness. No anxiety. No fever chills. White count 12.2.Creatinine 1.5, LFTs downtrending. Continue postoperative care as per surgery. No overnight A. fib RVR. Restart apixaban continue metoprolol 09/24-patient remains rate controlled. No overnight events. No concerns per staff. White count 11.2, hemoglobin 11 creatinine at baseline, downtrending LFTs. Tolerating diet. Possible discharge by surgery. Tolerating physical therapies. Drain output being monitored by surgery Principal diagnosis: acalculous cholecystitis Constitutional Vitals: Vital Signs Temp Pulse Resp BP Pulse Ox 98.1 F 93 H 20 126/76 98 09/25/19 08:02 09/24/19 07:01 09/25/19 08:02 09/25/19 08:02 09/25/19 08:02 Period Temp Pulse Resp BP Sys/Egan Pulse Ox Last 24 Hr 97.2 F-98.4 F 16-30 113-127/73-79 97-98 Intake and Output 09/24/19 09/25/19 09/25/19 21:59 05:59 13:59 Intake Total 630 150 100 Output Total 340 250 Balance 290 -100 100 Weight 78.29 kg Alert oriented Nonlabored breathing SKY drain states that there is output No lymphedema No anxiety Intake & Output: Intake & Output 09/24/19 09/25/19 09/25/19 21:59 05:59 13:59 Intake Total 630 150 100 Output Total 340 250 Balance 290 -100 100 Weight 78.29 kg Intake: IV 150 150 100 Zosyn 2.25 gm In Dextrose 5% in 50 50 Water 50 ml @ 100 mls/hr IV Q6H GINO Rx#:[id number] Oral 480 Output: Drainage 40 Abdomen 40 Void Amount 300 250 Other: Meal Dinner Percent of Meal Consumed 25% Urine Appearance Clear Urine Color Dark Yellow # Voids 1 OBJ DATA Labs CBC & Chem 7: 09/25/19 07:45 09/25/19 07:45 Labs: Abnormal Lab Results 09/25/19 09/25/19 09/24/19 07:45 07:45 04:32 WBC 11.2 H 12.2 H RBC 3.47 L 3.52 L Hgb 11.0 L 11.0 L Hct 33.6 L RDW 15.9 H 15.6 H Gran # 9.29 H Lymph # (Auto) Sodium 130 L Carbon Dioxide 17 L Anion Gap BUN 26 H Creatinine 1.6 H Glucose 113 H Calcium 8.0 L Phosphorus Total Bilirubin GGT 45 H AST 47 H ALT 54 H Lactate Dehydrogenase NT-Pro-B Natriuret Pep Total Protein 5.5 L Globulin 09/24/19 09/23/19 09/23/19 04:32 12:28 04:36 WBC RBC 3.26 L Hgb 10.4 L Hct 31.8 L RDW 15.2 H 15.3 H Gran # Lymph # (Auto) 1.45 L Sodium 132 L Carbon Dioxide 18 L Anion Gap 17.0 H BUN 25 H Creatinine 1.5 H Glucose 152 H Calcium 8.1 L Phosphorus 5.3 H Total Bilirubin GGT 46 H AST 65 H ALT 63 H Lactate Dehydrogenase NT-Pro-B Natriuret Pep Total Protein 5.4 L Globulin 2.0 L 09/23/19 09/22/19 04:36 14:54 WBC RBC Hgb Hct RDW Gran # Lymph # (Auto) Sodium 132 L Carbon Dioxide 17 L Anion Gap BUN 25 H Creatinine 1.4 H Glucose 112 H Calcium 8.1 L Phosphorus 4.6 H Total Bilirubin 1.1 H GGT 51 H AST 57 H ALT 58 H Lactate Dehydrogenase 256 H NT-Pro-B Natriuret Pep 93725.0 H Total Protein 5.2 L Globulin 2.0 L Meds: Medications Alprazolam (Xanax) 0.25 mg PO BIDP PRN PRN Reason: anxiety Last Admin: 09/24/19 21:02 Dose: 0.25 mg Documented by: Baclofen (Lioresal) 5 mg PO BID GINO Last Admin: 09/25/19 08:33 Dose: 5 mg Documented by: Hydromorphone HCl (Dilaudid) 0.5 mg IV Q2HP PRN; Protocol PRN Reason: Per Pain Protocol Last Admin: 09/23/19 17:28 Dose: 0.5 mg Documented by: Sodium Chloride (Sodium Chloride 0.9%) 1,000 mls @ 30 mls/hr IV .Q24H [facility] Last Admin: 09/24/19 22:46 Dose: 30 mls/hr Documented by: Piperacillin Sod/Tazobactam (Sod 2.25 gm/ Dextrose) 50 mls @ 100 mls/hr IV Q6H [facility]; Protocol Last Admin: 09/25/19 05:23 Dose: 100 mls/hr Documented by: Acetaminophen (Ofirmev) 1,000 mg in 100 mls @ 200 mls/hr IV Q6H [facility] Last Infusion: 09/25/19 06:30 Dose: Infused Documented by: Metoprolol Succinate (Toprol Xl) 50 mg PO BID [facility] Last Admin: 09/25/19 08:34 Dose: 50 mg Documented by: Ondansetron HCl (Zofran) 4 mg IV Q4HP PRN PRN Reason: Nausea And Vomiting Pantoprazole Sodium (Protonix) 40 mg PO QAMAC [facility] Last Admin: 09/25/19 08:33 Dose: 40 mg Documented by: Sodium Chloride (Saline Flush) 10 ml IV Q8 [facility] Last Admin: 09/25/19 05:23 Dose: 10 ml Documented by: A/P Narrative A/P Narrative: * Acute acalculous cholecystitis -status post laparoscopic cholecystectomy , * A. fib RVR-now rate controlled on beta-leatha. Patient was loaded on amiodarone during surgery. Restart anticoagulation CVA prophylaxis once approved by surgery * History of systolic CHF, BNP 57117. Repeat chest x-ray interval resolution of CHF. Well compensated. * Hypertensive hypertrophic cardiomyopathy-echo on 07/14/19 - EF 25%. Stress test was done on 07/15/19 - no reversible ischemia. NICK inhibitor is on hold due to SHERRI. Continue beta-leatha * MR/AR stable * SHERRI on CKD. Creatinine 1.5 * Elevation of liver enzymes-secondary to cholecystitis. Improving postop * Prophylaxis-SCDs * CODE STATUS: DNR DNI Plan * Restart anticoagulation Once approved by surgery * Continue beta-leatha * PT OT nutrition support * Discharge planning per surgery Time Spent With Patient Time: Total time spent is greater than 50% in coordination of care (as documented) at patient's floor/unit and/or counseling patient: QUALITY Stroke Symptom Onset Unknown: No VTE Deep Vein Thrombosis/Pulmonary Embolism Present on Admission: No
--- NOTE | 2019-09-25 13:24 | Discharge Summary ---
Discharge Provider Provider Patient information: Note initiated : 09/25/19 at 1:12 pm Service Date, if different from initiated Date: [] Patient: Liane James 89 y/o F admitted on 09/22/19 for n/v/d. Chief Complaint: [] Date of admission: 09/22/19 14:25 Discharge date: 09/25/19 Primary care physician: Natasha Arnold Admitting clinician: Ki Arnold Attending physician on admission: Ki Arnold Consults: 09/21/19 Consult to Physician [CONS] Stat Comment: Consulting Provider: Douglas Hou Reason For Exam: Physician to Consult Consult to Physician [CONS] Stat Comment: Consulting Provider: Ki Arnold Reason For Exam: Physician to Consult Attending physician on discharge: Ki Arnold Discharging clinician: Ki Aronld COURSE Hospital Course Hospital course: 89-year-old female admitted with acute acalculous cholecystitis. Patient had a two-month history of right subcostal abdominal pain with radiation through to her back and right shoulder. She had exacerbation of symptoms with meals. Evaluation showed a gallbladder ultrasound revealing thickened gallbladder without stones. MRCP on 722 showed a thickened gallbladder wall without stones and normal common bowel duct. Patient was counseled for acalculous cholecystitis with need for laparoscopic cholecystectomy. The patient also has a history of hypertensive cardiomyopathy dating back to 2014. She had an ejection fraction of 25%. Stress test on 07/15/19 showed no reversible ischemia. She has a history of chronic atrial fibrillation with her symptoms of congestive heart failure which was treated with diuretic therapy. She was offered an AICD but she refused. The patient was taken to the operating room on 21 September as well been transferred from her bed to the OR table she developed acute atrial fibrillation with RVR with heart rate of 180. She had altered mental status though her oxygenation remained at 100%. After "back to PACU she was given verapamil in her heart rate returned to near normal level at about 100. She became fully alert. She was seen by the hospitalist and treated overnight. On 22 September laparoscopic cholecystectomy was done. During the procedure upper portion of bed there was a large vein in the subserosal area that was punctured. She had very friable liver could not control the vein with elmer so an open right subcostal incision was made and the bleeding was controlled chromic suture. A drain was placed after the bleeding was controlled. The patient was transferred to the ICU and has been monitored since then. She has not had any arrhythmias since surgery and vital signs have been stable. She had no further bleeding and her hemoglobin has been consistently above 11. She is presently on a regular diet and is tolerating that well. She is stable for discharge home. Discharge diagnosis: acute acalculous cholecystitis Secondary discharge diagnosis: atrial fibrillation with rapid ventricular response Postoperative bleeding controlled by open laparotomy Hypertensive cardiomyopathy with ejection fraction of 25% Acute on chronic renal failure versus Chronic anticoagulant therapy Reason for admission: acute acalculous cholecystitis Procedures: laparoscopic cholecystectomy with open laparotomy for control of hemorrhage Pertinent studies/significant findings: none Complications: intraoperative bleeding secondary to venous sinus Time Spent with Patient Time attestation: Total time spent providing and/or coordinating discharge services: Physical Examination Vital Signs Vital signs: Temp Pulse Resp BP Pulse Ox 97.8 F 93 H 20 130/78 98 09/25/19 12:22 09/24/19 07:01 09/25/19 12:22 09/25/19 12:22 09/25/19 12:22 General physical appearance General physical exam: well developed, well nourished, no distress and moderate pain Eyes Eye exam: PERRL, normal ocular movement and pale ENT ENT exam: normal pinna, normal nares, normal mucosa and decreased hearing Head Head exam IM: Present atraumatic, normal inspection and normocephalic Neck Neck exam: no masses, no bruits, trachea midline, no lymphadenopathy and no venous distension Cardiovascular Cardiovascular exam IM: Present irregular rhythm (irregularly irregular rhythm), +S1, +S2 and tachycardia; Absent JVD Respiratory Respiratory exam: normal expansion, normal respiratory effort, clear to percussion and clear to auscultation (no rales rubs rhonchi or wheezes) Abdomen Abdomen: Present tender (tenderness in epigastrium and right upper quadrant in the subcostal region) Integumentary Integumentary: Present no rash, no growths and no abnormal pigmentation Musculoskeletal Musculoskeletal: Present normal gait and normal posture Psychiatric Psychiatric: Present oriented to time, oriented to person, oriented to place and speech is normal Discharge Plan Patient/Caregiver Discharge Instructions Activity: ambulate only with your walker, increase activity as tolerated and resume usual activities as tolerated Diet: Regular Diet Instructions: A-fib (Atrial Fibrillation) (GEN), Cholecystitis (GEN), Devante- Brar Drain Care (GEN), Laparoscopic Cholecystectomy (GEN) Activity Restrictions/Additional Instructions: This discharge packet is provided to you to help keep you informed about your care. We want to ensure you get everything you need when you go home. You will also be receiving a call from us in a few days to follow up with you and see how you are doing since your discharge. This gives us a chance to listen to any concerns you maybe experiencing since you were discharged or any additional needs you may have, as well as providing us feedback on your care experience. We strive to always provide excellent care and thank you for your feedback and for choosing [facility]. Prescriptions: New oxycodone-acetaminophen [Endocet] 10-325 mg Tablet 1 tab PO Q4H PRN (Reason: Pain) Qty: 40 RF: 0 Continued potassium chloride 10 mEq tablet extended release 10 meq PO QDAY RF: 0 Eliquis 2.5 mg tablet 2.5 mg PO BID Qty: 60 RF: 6 metoprolol succinate 50 mg tablet extended release 24 hr 50 mg PO BID Qty: 60 RF: 2 baclofen 5 mg tablet 5 mg PO BID Qty: 60 RF: 2 candesartan [Atacand] 4 mg tablet 4 mg PO QDAY Qty: 90 RF: 0 alprazolam [Xanax] 0.25 mg tablet 0.25 mg PO BID PRN (Reason: anxiety) Qty: 60 RF: 2 Follow Up Plan Follow up with: Ki Arnold MD [Physician] - (contact the office for an appointment in 2 weeks Call the office Saturday after 8 AM to confirm appointment date and time) Natasha Arnold ARNP [Primary Care Provider] - Patient Disposition: Home, Self-Care Assessment: patient is discharged home in stable satisfactory condition. She does not have any cardiorespiratory compromise. There is no evidence of bleeding at this time. Prognosis: Good Rehab Potential: Good I certify that the patient requires SNF services: No Overall status at discharge: patient is progressing back to baseline Discharge Orders: Discharge Order (Routine); Ordered 09/25/19 Ordered By: Ki Arnold Pending Pending Pending: Resuscitation Status Full Code Diet GI Soft/Transitional Start Sophia Sep 23 1226 Alprazolam (Xanax) 0.25 mg PO BIDP PRN PRN Reason: anxiety Last Admin: 09/24/19 21:02 Dose: 0.25 mg Documented by: Admin: 09/24/19 11:42 Dose: 0.25 mg Documented by: Admin: 09/23/19 20:31 Dose: 0.25 mg Documented by: [email or web address] Baclofen (Lioresal) 5 mg PO BID GINO Last Admin: 09/25/19 08:33 Dose: 5 mg Documented by: Admin: 09/24/19 21:02 Dose: 5 mg Documented by: JOYA Hydromorphone HCl (Dilaudid) 0.5 mg IV Q2HP PRN; Protocol PRN Reason: Per Pain Protocol Last Admin: 09/23/19 17:28 Dose: 0.5 mg Documented by: EVIE Sodium Chloride (Sodium Chloride 0.9%) 1,000 mls @ 30 mls/hr IV .Q24H [facility]INO Last Admin: 09/24/19 22:46 Dose: 30 mls/hr Documented by: Admin: 09/23/19 13:20 Dose: Not Given Documented by: EVIE Piperacillin Sod/Tazobactam (Sod 2.25 gm/ Dextrose) 50 mls @ 100 mls/hr IV Q6H [facility]INO; Protocol Last Admin: 09/25/19 13:00 Dose: 100 mls/hr Documented by: Infusion: 09/25/19 05:53 Dose: 100 mls/hr Documented by: Admin: 09/25/19 05:23 Dose: 100 mls/hr Documented by: Infusion: 09/25/19 00:37 Dose: 100 mls/hr Documented by: Admin: 09/25/19 00:07 Dose: 100 mls/hr Documented by: Infusion: 09/24/19 18:20 Dose: 100 mls/hr Documented by: Admin: 09/24/19 17:50 Dose: 100 mls/hr Documented by: Infusion: 09/24/19 12:14 Dose: 0 mls/hr Documented by: Admin: 09/24/19 11:42 Dose: 100 mls/hr Documented by: Infusion: 09/24/19 06:30 Dose: 0 mls/hr Documented by: Admin: 09/24/19 06:00 Dose: 100 mls/hr Documented by: Infusion: 09/24/19 00:48 Dose: 100 mls/hr Documented by: Admin: 09/24/19 00:18 Dose: 100 mls/hr Documented by: Infusion: 09/23/19 18:29 Dose: 100 mls/hr Documented by: Admin: 09/23/19 17:59 Dose: 100 mls/hr Documented by: EVIE Acetaminophen (Ofirmev) 1,000 mg in 100 mls @ 200 mls/hr IV Q6H [facility] Last Admin: 09/25/19 13:00 Dose: 200 mls/hr Documented by: Infusion: 09/25/19 06:30 Dose: 0 mls/hr Documented by: Admin: 09/25/19 05:55 Dose: 200 mls/hr Documented by: Infusion: 09/25/19 01:17 Dose: 200 mls/hr Documented by: Admin: 09/25/19 00:47 Dose: 200 mls/hr Documented by: Infusion: 09/24/19 18:19 Dose: 200 mls/hr Documented by: Admin: 09/24/19 17:49 Dose: 200 mls/hr Documented by: Infusion: 09/24/19 12:20 Dose: 0 mls/hr Documented by: Admin: 09/24/19 11:43 Dose: 200 mls/hr Documented by: Infusion: 09/24/19 06:43 Dose: 0 mls/hr Documented by: Admin: 09/24/19 05:31 Dose: 200 mls/hr Documented by: Infusion: 09/24/19 00:16 Dose: 200 mls/hr Documented by: Admin: 09/23/19 23:46 Dose: 200 mls/hr Documented by: Infusion: 09/23/19 17:58 Dose: 200 mls/hr Documented by: Admin: 09/23/19 17:28 Dose: 200 mls/hr Documented by: EVIE Metoprolol Succinate (Toprol Xl) 50 mg PO BID [facility] Last Admin: 09/25/19 08:34 Dose: 50 mg Documented by: Admin: 09/24/19 21:02 Dose: 50 mg Documented by: Admin: 09/24/19 08:56 Dose: 50 mg Documented by: Admin: 09/23/19 20:31 Dose: 50 mg Documented by: SMITH Pantoprazole Sodium (Protonix) 40 mg PO QAMAC [facility] Last Admin: 09/25/19 08:33 Dose: 40 mg Documented by: Admin: 09/24/19 07:22 Dose: 40 mg Documented by: JENNY Sodium Chloride (Saline Flush) 10 ml IV Q8 [facility] Last Admin: 09/25/19 05:23 Dose: 10 ml Documented by: Admin: 09/24/19 21:03 Dose: 10 ml Documented by: Admin: 09/24/19 17:48 Dose: 10 ml Documented by: Admin: 09/24/19 06:01 Dose: 10 ml Documented by: Admin: 09/23/19 20:31 Dose: 10 ml Documented by: Admin: 09/23/19 13:20 Dose: Not Given Documented by: EVIE Shift Summary 09/24/19 16:51 Shift Summary by Ursula Cai Patient was admitted medical obs for lap nicole. The patient had an RVR in her procedure. The Patient has a history of AFIB, but had not taken her medications in a few days prior to surgery. The surgery became an open nicole. The patient is currently in AFIB. her rates have been controlled (less than 100) with her metoprolol. Patient has an upper abdomen incision that is closed with elmer and another incision near the umbilicus. The patient has a SKY drain right mid abdomen. dressing was changed today. there is a mepilex sponge in addition to the sponge that doctor had in the original dressing. Sky drain has been putting out serosanginous drainage. there is alot of drainage around the sky insertion site. Patient has been advanced to a GI soft diet. Patient has been ambulating to and from the bathroom without concerns. She has needed assistance with the iv pole. Patient is pleasant and cooperative with cares, but occasionally will get up without calling for assistance because she does not want to bother anyone. Will update at bedside report. Initialized on 09/24/19 16:51 - END OF NOTE
--- NOTE | 2019-10-19 08:47 | Operative Note ---
DATE OF OPERATION: 09/23/2019 PREOPERATIVE DIAGNOSIS: Acute cholecystitis. POSTOPERATIVE DIAGNOSIS: Acute cholecystitis. PROCEDURE: Laparoscopic cholecystectomy with open laparotomy for control of liver hemorrhage. SURGEON: Ki Arnold M.D. FINDINGS: Acute severe inflammation of the gallbladder with a large vein in the subserosal in the bed of the liver that was torn, requiring open laparotomy for control of hemorrhage. COMPLICATIONS: Intraoperative bleeding from bed of liver. SURGEON: Ki Arnold M.D. DESCRIPTION OF PROCEDURE: Under general anesthesia, the patient's abdomen was prepped and draped in a sterile field. A time-out procedure was carried out as per protocol. A supraumbilical incision was made and Veress needle was inserted. Abdomen was insufflated with 2 liters of CO2. A 12 mm port was placed. Laparoscope was placed. Under videoscopic guidance, a 12 mm port and two 5 mm ports were placed in the right subcostal region. The gallbladder was grasped in position. There was acute severe inflammation of the gallbladder. Cystic duct and cystic artery were dissected. Cystic duct was transected using Endo-MATTIE stapler close to the gallbladder. The cystic artery was clipped with 5 clips and divided. The gallbladder was then from the infrahepatic bed using electrocautery. In the midportion of the dissection in the bed there was a large vein that was entered. Hemostasis was controlled by compression and the gallbladder was dissected and placed in an EndoCatch device and retrieved. I made multiple attempts to try to control a bleeding vein, but the elmer would not hold. I then emergently connected the subcostal incision and proceeded with an open laparotomy. Once the abdomen was open, the bleeding could be controlled with forceps. I was able to place three [id number] sutures of #1 chromic around the bleeding vein with good control. Hemostasis was totally achieved. Irrigation was carried out. A #10 Sal drain was placed in the bed. Sponge and needle counts were verified as correct. It was elected to do a completion x-ray at the end of the procedure. Fascia was closed with running #1 Prolene. Subcutaneous tissue was closed with 2-0 Monocryl. Skin was closed with elmer. Drain was secured with 2-0 nylon. Tegaderm dressings were placed and patient was awakened from anesthesia without difficulty. She was transferred to a bed and taken to the postanesthetic care unit in stable, satisfactory condition. LCS:candi Job ID: [id number] Doc ID: [id number] Ki Arnold M.D.
== END 2019-09-25 14:20 | disposition home or self-care (01) | DRG 415 ==
LOC: ED 15:05 → MEDSUR 15:05 → ICU 09-22 14:45
PROVIDERS: ADMIT Family Medicine Adult Medicine; ATTEND Family Medicine Adult Medicine